=== PATIENT | male | born 1965 | race Caucasian/White ===

== ENCOUNTER 2016-12-10 03:50 | Emergency (ER) | payer MEDICARE, OTHER ==
[~2016-12-10] VITALS: Ht 193 cm; Wt 172.7 kg
[~2016-12-10 03:50] MED LIST: BACTRIM DS1 TAB PO; CARDIZEM CD240 MG PO; CIPROFLOXACN500 MG PO; DILAUDID 2MG2 MG/TAB PO; DOCUSATE CAL240 MG PO; ELIQUIS2.5 MG PO; GABAPENTIN300 MG PO; GILENYA0.5 MG PO; HORIZANT300 MG PO; HORIZANT600 MG PO; HYDROCODONE/ACE1 TAB PO; LISINOPRIL10 MG PO; LISINOPRIL20 MG PO; MEDDOSEPAK PO; MIRALAX3350 NF PO; NASACORT A55 MCG/ACT; PREDNISONE20 MG PO; PREVACID30 M3 PO; STERAPRED DS10 MG PO; ZITHROMAX250 MG PO
[2016-12-10 04:58] LABS: HEMATOCRIT 50.1 % (39.0-50.0); HEMOGLOBIN 16.5 g/dl (14.0-18.0); MEAN CELL VOLUME 92.6 fL CALC (80.0-100.0); MEAN CORPUSCULAR HGB 30.5 pG CALC (26.0-32.0); MEAN CORPUSCULAR HGB CONC 32.9 g/L CALC (32.0-36.0); NEUT# 7.76 thou/uL (1.82-7.42); RED BLOOD COUNT 5.41 mill/uL (4.70-6.10); RED CELL DISTRI WIDTH 13.5 % (11.5-15.5)
[2016-12-10 05:06] LABS: ALKALINE PHOSPHATASE 67 u/l (38-126); AMYLASE 44 u/l (30-110); ANION GAP 15 (6-22 (CALC)); BILIRUBIN, TOTAL 0.3 mg/dL (0.0-1.4); BUN 11 mg/dL (9-20); BUN/CREATININE RATIO 15 (12-20 (CALC)); CALCIUM 9.5 mg/dL (8.4-10.2); CARBON DIOXIDE 32 mmol/l (22-30); CHLORIDE 99 mmol/l (95-108); CREATININE 0.7 mg/dL (0.7-1.3); GFR > 60 ML/MIN (>=60 (CALC)); GFR FOR AFR.AMER. > 60 ML/MIN (>=60 (CALC)); GLUCOSE 202 mg/dL (75-110); LIPASE 35 u/l (23-300); POTASSIUM 3.7 mmol/l (3.5-5.1); SGOT/AST 19 u/l (17-59); SGPT/ALT 41 u/l (21-72); SODIUM 142 mmol/l (137-146); TOTAL PROTEIN 6.9 g/dL (6.3-8.2)
[2016-12-10 05:18] LABS: MYOGLOBIN 21 ng/mL (0 - 121)
[2016-12-10] MEDS ORDERED: MAG CITRATE PO (06:37)
[2016-12-10 07:05] VITALS: BP 144/81
== END 2016-12-10 08:54 | disposition home or self-care (01) ==
LOC: ED 03:50
PROVIDERS: Emergency Medicine
DX: K59.00 Constipation, unspecified (principal); I10 Essential (primary) hypertension; I48.91 Unspecified atrial fibrillation; F17.220 Nicotine dependence, chewing tobacco, uncomplicated; R10.84 Generalized abdominal pain; M54.9 Dorsalgia, unspecified

== ENCOUNTER 2016-12-21 22:01 | Emergency (ER) | payer MEDICARE, OTHER ==
[~2016-12-21] VITALS: Ht 193 cm; Wt 181.8 kg
[~2016-12-21 22:01] MED LIST changes: +MAG CITRATE PO
[2016-12-22] VITALS: BP 138/66
== END 2016-12-22 00:18 ==
LOC: ED 22:01
DX: M54.5 Low back pain (principal); I10 Essential (primary) hypertension; G35 Multiple sclerosis; E11.9 Type 2 diabetes mellitus without complications; I48.91 Unspecified atrial fibrillation; F17.210 Nicotine dependence, cigarettes, uncomplicated; E66.01 Morbid (severe) obesity due to excess calories; Z68.42 Body mass index [BMI] 45.0-49.9, adult

== ENCOUNTER 2017-04-29 22:28 | Emergency (ER) | payer MEDICARE, OTHER ==
[~2017-04-29] VITALS: Ht 193 cm; Wt 181.8 kg
[2017-04-29 23:59] LABS: HEMATOCRIT 46.8 % (39.0-50.0); HEMOGLOBIN 15.8 g/dl (14.0-18.0); IMMATURE GRANULOCYTES 0.9 % (0.0-1.0); MEAN CELL VOLUME 91.1 fL CALC (80.0-100.0); MEAN CORPUSCULAR HGB 30.7 pG CALC (26.0-32.0); MEAN CORPUSCULAR HGB CONC 33.8 g/L CALC (32.0-36.0); NEUT# 8.57 thou/uL (1.82-7.42); RED BLOOD COUNT 5.14 mill/uL (4.70-6.10); RED CELL DISTRI WIDTH 13.1 % (11.5-15.5)
[2017-04-30 00:05] LABS: ALBUMIN 3.9 g/dL (3.2-5.0); ALKALINE PHOSPHATASE 65 u/l (38-126); ANION GAP 14 (6-22 (CALC)); BILIRUBIN, TOTAL 0.5 mg/dL (0.0-1.4); BUN 10 mg/dL (9-20); BUN/CREATININE RATIO 15 (12-20 (CALC)); CALCIUM 8.9 mg/dL (8.4-10.2); CARBON DIOXIDE 28 mmol/l (22-30); CHLORIDE 99 mmol/l (95-108); CREATININE 0.7 mg/dL (0.7-1.3); GFR > 60 ML/MIN (>=60 (CALC)); GFR FOR AFR.AMER. > 60 ML/MIN (>=60 (CALC)); GLUCOSE 244 mg/dL (75-110); POTASSIUM 3.8 mmol/l (3.5-5.1); SGOT/AST 33 u/l (17-59); SGPT/ALT 49 u/l (21-72); SODIUM 137 mmol/l (137-146); TOTAL PROTEIN 6.6 g/dL (6.3-8.2)
[2017-04-30 01:40] VITALS: BP 127/74
== END 2017-04-30 01:50 ==
LOC: ED 22:28
PROVIDERS: Emergency Medicine
DX: M54.17 Radiculopathy, lumbosacral region (principal); G89.29 Other chronic pain; M54.5 Low back pain

== ENCOUNTER 2017-12-22 14:43 | Observation (INO) | payer MEDICARE, OTHER ==
[~2017-12-22] VITALS: Ht 193 cm; Wt 158.0 kg
[~2017-12-22 14:43] MED LIST changes: +DILTIAZEM120 M2 PO; +SOMA350 MG PO; +TIZANIDINE HCL4 M1 PO; +XANAX XR2 MG PO; +ZESTRIL10 M1 PO
[2017-12-22 16:02] LABS: HEMATOCRIT 48.6 % (39.0-50.0); IMMATURE GRANULOCYTES 0.3 % (0.0-1.0); MEAN CELL VOLUME 90.8 fL CALC (80.0-100.0); MEAN CORPUSCULAR HGB 29.9 pG CALC (26.0-32.0); MEAN CORPUSCULAR HGB CONC 32.9 g/L CALC (32.0-36.0); NEUT# 6.66 thou/uL (1.82-7.42); RED BLOOD COUNT 5.35 mill/uL (4.70-6.10); RED CELL DISTRI WIDTH 13.7 % (11.5-15.5)
[2017-12-22 16:18] LABS: ALBUMIN 3.5 g/dL (3.2-5.0); ALKALINE PHOSPHATASE 71 u/l (38-126); ANION GAP 19 (6-22 (CALC)); BILIRUBIN, TOTAL 0.4 mg/dL (0.0-1.4); BUN 8 mg/dL (9-20); BUN/CREATININE RATIO 13 (12-20 (CALC)); CARBON DIOXIDE 27 mmol/l (22-30); CHLORIDE 93 mmol/l (95-108); CREATININE 0.7 mg/dL (0.7-1.3); GFR > 60 ML/MIN (>=60 (CALC)); GFR FOR AFR.AMER. > 60 ML/MIN (>=60 (CALC)); LIPASE 39 u/l (23-300); POTASSIUM 4.8 mmol/l (3.5-5.1); SGOT/AST 19 u/l (17-59); SGPT/ALT 39 u/l (21-72); SODIUM 134 mmol/l (137-146); TOTAL PROTEIN 6.6 g/dL (6.3-8.2)
[2017-12-22 18:50] LABS: URINE BILIRUBIN - DIPSTICK NEGATIVE (NEGATIVE); URINE BLOOD DIPSTICK SMALL (NEGATIVE); URINE COLOR YELLOW; URINE GLUCOSE - DIPSTICK NEGATIVE (NEGATIVE); URINE KETONE NEGATIVE (NEGATIVE); URINE LEUK ESTERASE NEGATIVE (NEGATIVE); URINE NITRITE - DIPSTICK NEGATIVE (Negative); URINE PH 5.5 (4.5-8.0); URINE PROTEIN - DIPSTICK NEGATIVE (NEG-TRACE); URINE UROBILINOGEN - DIPSTICK 0.2 E.U./dL (0.2)
[2017-12-22 18:52] LABS: URINE CLARITY CLEAR
[2017-12-22 18:53] VITALS: BP 102/65
[2017-12-22 18:58] LABS: URINE WBC 0-2 WBC/hpf (0-5)
[2017-12-23 04:10] VITALS: BP 113/73
[2017-12-23 08:00] VITALS: BP 146/77
[2017-12-23 15:24] VITALS: BP 113/71
[2017-12-23 17:39] LABS: CHOLESTEROL HDL RATIO 6.2 (<4.4 (CALC))
[2017-12-23 18:40] VITALS: BP 117/73
[2017-12-24 04:00] VITALS: BP 118/78
[2017-12-24 05:48] LABS: HEMATOCRIT 46.4 % (39.0-50.0); HEMOGLOBIN 15.2 g/dl (14.0-18.0); MEAN CELL VOLUME 91.2 fL CALC (80.0-100.0); MEAN CORPUSCULAR HGB 29.9 pG CALC (26.0-32.0); MEAN CORPUSCULAR HGB CONC 32.8 g/L CALC (32.0-36.0); RED BLOOD COUNT 5.09 mill/uL (4.70-6.10); RED CELL DISTRI WIDTH 13.7 % (11.5-15.5)
[2017-12-24 05:57] LABS: ANION GAP 18 (6-22 (CALC)); BUN 9 mg/dL (9-20); BUN/CREATININE RATIO 13 (12-20 (CALC)); CARBON DIOXIDE 29 mmol/l (22-30); CHLORIDE 94 mmol/l (95-108); CREATININE 0.7 mg/dL (0.7-1.3); GFR > 60 ML/MIN (>=60 (CALC)); GFR FOR AFR.AMER. > 60 ML/MIN (>=60 (CALC)); MAGNESIUM 2.1 mg/dL (1.6-2.3); POTASSIUM 4.9 mmol/l (3.5-5.1); SODIUM 135 mmol/l (137-146)
[2017-12-24 08:20] VITALS: BP 130/75
[2017-12-24 14:48] VITALS: BP 129/68
[2017-12-25 00:45] VITALS: BP 122/70
[2017-12-25 07:40] VITALS: BP 116/76
[2017-12-25 08:49] VITALS: BP 116/76
== END 2017-12-25 14:30 | disposition home health service (06) ==
LOC: ED 14:43 → ED-I 15:29 → ED 15:29 → ED-I 17:39 → ED 17:59 → MS2 18:00
PROVIDERS: Family Medicine; Nurse Practitioner Family; ADMIT Internal Medicine; ATTEND Internal Medicine
DX: K59.09 Other constipation (principal); I10 Essential (primary) hypertension; E11.9 Type 2 diabetes mellitus without complications; Z68.41 Body mass index [BMI] 40.0-44.9, adult; E66.01 Morbid (severe) obesity due to excess calories; G35 Multiple sclerosis; M48.00 Spinal stenosis, site unspecified; I48.0 Paroxysmal atrial fibrillation; L89.153 Pressure ulcer of sacral region, stage 3; R10.32 Left lower quadrant pain; F17.220 Nicotine dependence, chewing tobacco, uncomplicated; G82.50 Quadriplegia, unspecified; G47.33 Obstructive sleep apnea (adult) (pediatric); Z79.01 Long term (current) use of anticoagulants; Z79.84 Long term (current) use of oral hypoglycemic drugs
CPT/HCPCS: J1335; Q9967

== ENCOUNTER 2018-01-16 08:44 | Inpatient (IN) | payer MEDICARE, OTHER ==
[~2018-01-16] VITALS: Ht 193 cm; Wt 175.4 kg
[2018-01-16] VITALS (36 sets, daily range): BP systolic 62–148; BP diastolic 33–82
--- NOTE | 2018-01-16 09:07 | NUR ---
PATIENT TO ROOM VIA EMS AND PHYSICIAN AT BEDSIDE FOR EVAL
[2018-01-16 09:21] LABS: HEMATOCRIT 47.9 % (39.0-50.0); HEMOGLOBIN 15.9 g/dl (14.0-18.0); MEAN CELL VOLUME 90.9 fL CALC (80.0-100.0); MEAN CORPUSCULAR HGB 30.2 pG CALC (26.0-32.0); MEAN CORPUSCULAR HGB CONC 33.2 g/L CALC (32.0-36.0); NEUT# 17.86 thou/uL (1.82-7.42); RED BLOOD COUNT 5.27 mill/uL (4.70-6.10); RED CELL DISTRI WIDTH 14.1 % (11.5-15.5)
--- NOTE | 2018-01-16 09:21 | NUR ---
Vancomycin consult Age: 52 years Weight: 181 kg Height: 193 cm Gender: Male SCR: 1 mg/dl Dosing weight: 124.48 kg IBW: 86.80 kg CRCL (ml/min): 108.5 Kev (hr-1): 0.094 Half-life (hrs): 7.37 Vd (liters): 126.70 (factor: 0.7 L/kg) Vancomycin 1500 mg q8 hrs to produce a predicted peak of 20 mcg/ml and a predicted trough of 12 mcg/ml based on (Population-based pharmacokinetic analysis).
[2018-01-16 09:22] LABS: URINE BLOOD DIPSTICK LARGE (NEGATIVE); URINE COLOR RED; URINE GLUCOSE - DIPSTICK 100 mg/dL (NEGATIVE); URINE KETONE TRACE mg/dL (NEGATIVE); URINE PROTEIN - DIPSTICK >=300 mg/dL (NEG-TRACE); URINE SPECIFIC GRAVITY 1.015
[2018-01-16 09:37] LABS: ALBUMIN 3.6 g/dL (3.2-5.0); ALKALINE PHOSPHATASE 81 u/l (38-126); ANION GAP 17 (6-22 (CALC)); BILIRUBIN, TOTAL 0.9 mg/dL (0.0-1.4); BUN 9 mg/dL (9-20); BUN/CREATININE RATIO 13 (12-20 (CALC)); CARBON DIOXIDE 24 mmol/l (22-30); CHLORIDE 95 mmol/l (95-108); CREATININE 0.7 mg/dL (0.7-1.3); GFR > 60 ML/MIN (>=60 (CALC)); GFR FOR AFR.AMER. > 60 ML/MIN (>=60 (CALC)); POTASSIUM 4.2 mmol/l (3.5-5.1); SGPT/ALT 46 u/l (21-72); SODIUM 133 mmol/l (137-146)
[2018-01-16 09:38] LABS: URINE BILIRUBIN - DIPSTICK NEGATIVE (NEGATIVE); URINE CLARITY CLOUDY; URINE LEUK ESTERASE MODERATE (NEGATIVE); URINE NITRITE - DIPSTICK POSITIVE (Negative)
[2018-01-16 09:39] LABS: URINE RBC >100 RBC/hpf (0-5)
[2018-01-16 09:40] LABS: SGOT/AST 42 u/l (17-59)
--- NOTE | 2018-01-16 09:47 | NUR ---
RECVD REPORT FROM MIRTHA LYONS. INTRODUCED SELF TO PT. PT RESTING IN BED.
--- NOTE | 2018-01-16 10:43 | NUR ---
PT SLEEPING, BUT EASILY AROUSED. PT UNSURE OF HOME MEDS. CONSULT PLACED WITH PHARMACY.
--- NOTE | 2018-01-16 11:10 | NUR ---
CALLED INTO ROOM, PT REQUEST I MOVE HIS ARMS ONTO PILLOW. PT READJUSTED.
--- NOTE | 2018-01-16 11:44 | NUR ---
RECVING MIRTHA THOMPSON.
--- NOTE | 2018-01-16 12:02 | NUR ---
PT GIVEN A CUP OF WATER.
--- NOTE | 2018-01-16 12:11 | NUR ---
sbar printed to floor
--- NOTE | 2018-01-16 12:18 | NUR ---
WAITING ON ORDERS/ROOM ASSINGMENT FOR ICU. PT AWAKE. ANSWERING HIS QUESTIONS. SEPSIS SHEET COMPLETED. EKG COMPLETED.
--- NOTE | 2018-01-16 12:31 | NUR ---
Admission Note Report Given to: PEDRO HORTON Transported by: Wheelchair X Stretcher Transported with: X Nurse Transporter X Patent IV O2 X Credit Card Control Clerk
--- NOTE | 2018-01-16 12:35 | NUR ---
PT TRANSFERED TO ICU 5 IN STABLE CONDITION ON TELE BY [place]. RN @ BEDSIDE.
--- NOTE | 2018-01-16 12:50 | NUR ---
PT ARRIVED TO THE UNIT VIA STRETCHER FROM ER, PT WAS A MAX ASSIST SLIDE TO ICU BED 5, PT A & O X3, PERRL, MONITORING EQUIPMENT AND CALL CORTEZ SYSTEM EXPLAINED TO PT PRIOR TO APPLYING EQUIPMENT, HR 104, RESP. 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
[2018-01-16] MEDS ORDERED: DILTIAZEM HCL240 M2 PO (12:59)
[2018-01-16] MEDS ORDERED: ELIQUIS5 MG PO (12:59)
[2018-01-16] MEDS ORDERED: NEURONTIN300 MG PO (12:59)
[2018-01-16] MEDS ORDERED: HYDROCO/APAP1 TA9 PO (13:00)
[2018-01-16] MEDS ORDERED: ZESTRIL10 M1 PO (13:00)
[2018-01-16] MEDS ORDERED: METFORMIN500 MG PO (13:01)
[2018-01-16] MEDS ORDERED: TIZANIDINE HCL4 MG PO (13:01)
--- NOTE | 2018-01-16 13:01 | NUR ---
FOUND MEDICATION BOTTLES IN BAG ON COUNTER. UNSURE IF MED LIST IS COMPLETE OR WHEN PT LAST TOOK MEDS.
--- NOTE | 2018-01-16 13:20 | NUR ---
PT HAS MULTIPLE DEMANDS, INTERRUPTING NURSING CARE
--- NOTE | 2018-01-16 13:31 | NUR ---
GAYLE Bernal updated per this creative services writer on pt condition; informed manual bp 72/50, st 100s, temp 101.3, 4th L bolus currently infusing; orders to be placed
--- NOTE | 2018-01-16 13:40 | NUR ---
CALL PLACED TO DR LOWERY, GAVE PT UPDATE, PLAN OF CARE DISCUSSED, NO NEW ORDERS GIVEN AT THIS TIME
--- NOTE | 2018-01-16 14:05 | NUR ---
PT EDUCATED THAT HOME MEDICATIONS CAN NOT BE KEPT AT BEDSIDE, PT NOT HAPPY THAT MEDICATION HAS TO BE SENT HOME OR TO PHARMACY, PT STATED, "I CAN'T EVEN GET OUT OF THE BED TO GET MY MEDICATION SO HOW AM I GOING TO TAKE MY OWN MEDICATION"
--- NOTE | 2018-01-16 15:15 | NUR ---
PT CALLING OUT FOR NURSE TO CHANGE THE TV, PT STATES, "I CAN'T MOVE MY ARMS", WHEN GIVING HIM THE CALL LIGHT BACK PT REACHED OUT AND GRABBED IT
--- NOTE | 2018-01-16 16:45 | NUR ---
PT RESTING WITH EYES CLOSED, AROUSES EASILY TO VERBAL STIMULI, REMINDED TO CALL FOR ASSISTANCE, CALL CORTEZ WITHIN REACH
--- NOTE | 2018-01-16 17:35 | NUR ---
FAN PROVIDED FOR PT COMFORT, PT MAKES MANY DEMANDS VERY DIFFICULT TO PLEASE, PT ASSISTED WITH REPOSITIONING,REMINDED TO CALL FOR ASSISTANCE, CALL CORTEZ WITHIN REACH
--- NOTE | 2018-01-16 18:07 | NUR ---
SETUP ASSISTANCE PROVIDED WITH PM MEAL, PT ENCOURAGED TO TRY AND FEED SELF, PT ASSURED ASSISTANCE WOULD BE PROVIDED WITH FEEDING IF HE WAS UNABLE TO FEED SELF, CONTROL SO PT COULD REACH IT MORE EASILY, PT REMINDED TO CALL FOR ASSISTANCE, CALL CORTEZ WITHIN REACH
--- NOTE | 2018-01-16 19:10 | NUR ---
awake. no acute distress. o2 cont per nc. desk monitor shows sinus tach. #20 lt hand saline lock. #18 rac ns infusing @ 100cchr, levo infusing @ 5mcg/min. drinking lg amt h20. esposito cath in place draining bloody urine. urometer applied. pt is very obese. requires much encouragement to assist with care. incont small amt green slimy watery stool. contact & fall precautions cont.
--- NOTE | 2018-01-16 20:20 | NUR ---
lab here. blood drawn.
--- NOTE | 2018-01-16 21:05 | NUR ---
lortab 3/325mg po per request for pain. pt admits pain level "more than 10". pt admits "i take my pain pills 5 times a day. i haven't had any in 24 hrs". pt does not appear in that much pain.
--- NOTE | 2018-01-16 21:50 | NUR ---
lab results rec'd. dr maher notified. orders rec'd.
--- NOTE | 2018-01-16 22:00 | NUR ---
instructed pt about order for ct. pt admitted "i have a show to watch." instructed pt he could watch tv later.
--- NOTE | 2018-01-16 22:05 | NUR ---
transferred onto stretcher x4 assists then to ct.
--- NOTE | 2018-01-16 22:30 | NUR ---
returned from ct.
[2018-01-17] VITALS (12 sets, daily range): BP systolic 100–139; BP diastolic 50–96
--- NOTE | 2018-01-17 00:01 | NUR ---
awake. no acute distress. 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 esposito draining small amt.
--- NOTE | 2018-01-17 01:00 | NUR ---
lortab 5/325mg given for c/o pain. rates pain level "10". pt does not appear in that much pain. temp 101.6. tylenol gr x given.
--- NOTE | 2018-01-17 02:00 | NUR ---
lab here. blood drawn.
[2018-01-17 02:07] LABS: HEMATOCRIT 42.1 % (39.0-50.0); HEMOGLOBIN 14.1 g/dl (14.0-18.0); IMMATURE GRANULOCYTES 1.4 % (0.0-1.0); MEAN CELL VOLUME 90.5 fL CALC (80.0-100.0); MEAN CORPUSCULAR HGB 30.3 pG CALC (26.0-32.0); MEAN CORPUSCULAR HGB CONC 33.5 g/L CALC (32.0-36.0); RED BLOOD COUNT 4.65 mill/uL (4.70-6.10); RED CELL DISTRI WIDTH 14.5 % (11.5-15.5)
[2018-01-17 02:36] LABS: ANION GAP 16 (6-22 (CALC)); BUN 13 mg/dL (9-20); BUN/CREATININE RATIO 12 (12-20 (CALC)); CARBON DIOXIDE 18 mmol/l (22-30); CHLORIDE 104 mmol/l (95-108); CREATININE 1.1 mg/dL (0.7-1.3); GFR > 60 ML/MIN (>=60 (CALC)); GFR FOR AFR.AMER. > 60 ML/MIN (>=60 (CALC)); POTASSIUM 4.3 mmol/l (3.5-5.1); SODIUM 133 mmol/l (137-146)
[2018-01-17 03:13] LABS: BAND 5 % (0-8); MANUAL DIFFERENTIAL YES; PLATELET COUNT 169 thou/uL (130-400)
--- NOTE | 2018-01-17 04:00 | NUR ---
eyes closed. no distress. desk monitor shows sinus rhythm.
--- NOTE | 2018-01-17 06:15 | NUR ---
awake. c/o back pain he rates as "10." pt does not appear to have pain level of 10. lortab 5/325mg po given.
--- NOTE | 2018-01-17 07:15 | NUR ---
PT LAYING IN BED RESTING WITH EYES CLOSED, AROUSES EASILY TO VERBAL STIMULI, PT A & O X3, REMAINS VERY DEMANDING, PERRL, HR 94, RESP. 18, BP 100/64, O2 96% ON RA, LUNG SOUNDS CLEAR, DIMINISHED IN THE BASES, STRONG RADIAL PULSES, WEAK PEDAL PULSES, ACTIVE BOWEL SOUNDS, LOYOLA CATH REMAINS IN PLACE WITH TEA COLORED URINE DRAINING WITH A SMALL CLOTS, AM ASSESSMENT COMPLETE, SEE INTERVENTIONS, SAFETY MEASURES REINFORCED, CALL CORTEZ WITHIN REACH
--- NOTE | 2018-01-17 07:35 | NUR ---
SETUP ASSISTANCE PROVIDED WITH JAMEY MOCTEZUMA
--- NOTE | 2018-01-17 07:50 | NUR ---
PT CLEANED UP WITH 5 PERSON ASSISTANCE
--- NOTE | 2018-01-17 08:12 | NUR ---
DIETARY AT BEDSIDE DISCUSSING MEAL CHOICES
--- NOTE | 2018-01-17 09:15 | NUR ---
DR OLSEN AT BEDSIDE DISCUSSING PLAN OF CARE
[2018-01-17 09:36] LABS: C. DIFFICILE TOXIN A&B NEGATIVE (NEGATIVE)
--- NOTE | 2018-01-17 09:43 | NUR ---
VANE FROM CASE MANAGEMENT AT BEDSIDE
--- NOTE | 2018-01-17 10:00 | NUR ---
PT CALLING OUT REQUESTING TO BED BOOSTED IN BED, PT AWARE EXTRA ASSISTANCE WOULD BE NEEDED, CALL CORTEZ WITHIN REACH
--- NOTE | 2018-01-17 10:15 | NUR ---
DAUGHTERS AT BEDSIDE
--- NOTE | 2018-01-17 11:10 | NUR ---
PT CALLING OUT WITH MULTIPLE REQUEST, UNABLE TO COMPLETE ONE REQUEST BEFORE PT MAKING MORE REQUEST
--- NOTE | 2018-01-17 12:29 | NUR ---
REPORT RECEIVED FROM MARYSOL, PT ARRIVED ON UNIT IN BED @ 1153, SETTLED IN ROOM, MEAL SERVED AND HE ATE THEN FELL ASLEEP. SLEEPING AT THIS TIME, WILL CONTINUE TO MONITOR, CALL CORTEZ IN REACH.
--- NOTE | 2018-01-17 14:00 | NUR ---
BARIATRIC BED DELIVERED TO ROOM, IT TOOK AT LEAST 6 LARGE MEN TO TRANSFER PT FROM REGULAR BED TO BARIATRIC BED. SETTLED IN BED, STAFF ADDRESSED ALL NEEDS/WANTS, CALL CORTEZ IN REACH.
--- NOTE | 2018-01-17 14:00 | NUR ---
PT IS VERY NEEDY AND CANNOT BE SATISFIED BY STAFF, ALL NEEDS ANTICIPATED BY STAFF AND STAFF GIVES HIM OPPORTUNITY TO HAVE ALL HIS "WANTS" ADDRESSED BUT THEY ARE USUALLY ENDLESS AND STAFF HAS TO LEAVE ROOM ABRUPTLY CALL CORTZE IN REACH, WILL CONTINUE TO MONITOR.
--- NOTE | 2018-01-17 16:00 | NUR ---
NO DRAINAGE IN LOYOLA BAG, CATHETER IRRIGATED, THICK BLOODY URINE ASPIRATED. DR FUCHS HERE @ 1700 ROUNDING, GAVE ORDERS TO IRRIGATE TWICE PER SHIFT AND THAT HE WILL TAKE PT TO OR IN 2-3 DAYS FOR FURTHER EVALUATION.
--- NOTE | 2018-01-17 20:18 | NUR ---
PATIENT RESTING IN BED WATCHING TV. HAS C/O OF PAIN AND NEEDING TO BE REPOSITIONED IN BED. RESP EVEN AND UNLABORED. NO S/S OF DISTRESS NOTED. PLAN OF CARE DISCUSSED AND FALL PRECAUTIONS IN PLACE. INFORMED PATIENT TO USE CALL LIGHT FOR ANY QUESTIONS OR CONCERNS. WILL CONTIUNE TO MICHAEL.
[2018-01-18] VITALS (9 sets, daily range): BP systolic 99–163; BP diastolic 44–89
--- NOTE | 2018-01-18 00:34 | NUR ---
PATIENT RESTING WITH EYES CLOSED. RESP EVEN AND UNLABORED. NO S/S OF DISTRESS NOTED.
--- NOTE | 2018-01-18 04:00 | NUR ---
FLOEY DRAINING BLOODY URINE ALL NIGHT. IRRIGATIED LOYOLA WITH 100ML, WHEN ASPIRIATED ROVED SEVERAL SMALL CLOTTS. NO DRAINING CLEAR RED URINE. PATIENT TOLERATED WELL.
--- NOTE | 2018-01-18 04:27 | NUR ---
PATIENT RESTING WITH EYES CLOSED. RESP EVEN AND UNLABORED. NO S/S OF DISTRESS NOTED.
[2018-01-18 07:01] LABS: HEMATOCRIT 36.8 % (39.0-50.0); IMMATURE GRANULOCYTES 1.2 % (0.0-1.0); MEAN CELL VOLUME 91.5 fL CALC (80.0-100.0); MEAN CORPUSCULAR HGB 30.1 pG CALC (26.0-32.0); MEAN CORPUSCULAR HGB CONC 32.9 g/L CALC (32.0-36.0); NEUT# 18.44 thou/uL (1.82-7.42); RED BLOOD COUNT 4.02 mill/uL (4.70-6.10); RED CELL DISTRI WIDTH 14.5 % (11.5-15.5)
[2018-01-18 07:02] LABS: HEMOGLOBIN 12.1 g/dl (14.0-18.0)
--- NOTE | 2018-01-18 07:05 | NUR ---
REPORT RECEIVED FROM SOLIS FLORES RN;INTRODUCED SELF TO PT AND POC DISCUSSED;5 PERSON LIFT ASSIST,PT RE-POSITIONED TO LEFT SIDE LAYING POSITION;ENCOURAGED PT TO CALL FOR ASSISTANCE IF NEEDED;FALL PRECAUTIONS IN PLACE WITH CALL LIGHT IN REACH;WILL CONTINUE TO MONITOR
[2018-01-18 07:15] LABS: BILIRUBIN, TOTAL 0.3 mg/dL (0.0-1.4); CREATININE 1.9 mg/dL (0.7-1.3); POTASSIUM 3.9 mmol/l (3.5-5.1)
[2018-01-18 07:19] LABS: TOTAL PROTEIN 4.4 g/dL (6.3-8.2)
--- NOTE | 2018-01-18 08:05 | NUR ---
PT APPEARS TO BE SLEEPING IN SEMI FOWLERS POSITION,WAKES EASILY TO VERBAL STIMULI;VS OBTAINED AND ASSESSMENT COMPLETED;RESPIRATIONS EVEN AND UNLABORED,SHALLOW ON RA;ABDOMEN DISTENDED/SOFT ON PALPATION,HYPOACTIVE IN ALL 4 QUADRANTS;WEAK PEDAL PULSES NOTED WITH +2 PITTING EDEMA NOTED,LEGS ELEVATED ON PILLOW;TELE MONITOR IN PLACE;#18G TO RAC FLUSHED AND PATENT,NEW TEGADERM APPLIED;EMS #20G TO LEFT HAND INFUSING NS @ 100ML/HR WELL,SITE APPEARS HEALTHY;PT RE-EDUCATED ON NPO DIET STATUS AND PT VERBALIZES UNDERSTANDING;LOYOLA CATHETER PATENT,DRAINING BLOODY/SEDIMENT URINE;LOYOLA IRRIGATED AT THIS TIME PER ORDER AND FLUSHED WITH EASE,NO CLOTS NOTED;ALLERGY BAND APPLIED;PT CURRENT TEMP 98.9;PT DENIES ANY CURRENT PAIN OR NEEDS;ENCOURAGED TO CALL FOR ASSISTANCE IF NEEDED;CALL LIGHT IN REACH;WILL CONTINUE TO MONITOR
--- NOTE | 2018-01-18 09:30 | NUR ---
TOTAL BED BATH GIVEN WITH EMMA/LOYOLA CATHETER CARE;WOUND TO BUTTOCK CLEANED AND WET TO DRY DRESSING APPLIED PER ORDER,PT TOLERATED WELL;RE-POSITIONED IN BED;PT DENIES ANY CURRENT NEEDS;FALL PRECAUTIONS IN PLACE WITH CALL LIGHT IN REACH;WILL CONTINUE TO MONITOR
--- NOTE | 2018-01-18 11:40 | NUR ---
PT RESTING IN SEMI FOWLERS POSITION;IV SITE PATENT INFUSING NS @ 125ML/HR,SITE APPEARS HEALTHY;TELE MONITOR IN PLACE;PT DENIES ANY CURRENT NEEDS;RESPIRATIONS EVEN AND UNLABORED ON RA;LOYOLA CATHETER PATENT DRAINING BLOODY URINE;PT RE-EDUCATED ON NPO DIET STATUS;FALL PRECAUTIONS IN PLACE;CALL LIGHT IN REACH;WILL CONTINUE TO MONITOR
--- NOTE | 2018-01-18 12:40 | NUR ---
PT COMPLAINS OF BACK AND HEAD PAIN RATING 10/10 ON THE PAIN SCALE;PT EDUCATED ON NPO DIET STATUS AND A LOWER BP;PAIN MEDICATION HELD AT THIS AND PT VERBALIZES UNDERSTANDING;WILL CONTINUE TO MONITOR
--- NOTE | 2018-01-18 13:09 | NUR ---
PT TRANSFERRED AT THIS TIME TO OR VIA HOSPITAL BED IN STABLE CONDITION
--- NOTE | 2018-01-18 16:00 | NUR ---
PT CURRENTLY DOWN IN OR;FAMILY IN ROOM 274 AWAITING ARRIVAL OF PATIENT;DAUGHTER ASKED TO PLEASE BRING IN ALL OF PATIENTS HOME MEDICATIONS PER ADELAIDE RODRIGUEZ AND VERBALIZES UNDERSTANDING
--- NOTE | 2018-01-18 16:50 | NUR ---
PT ARRIVED TO FLOOR VIA HOSPITAL BED;CBI RUNNING BAG #2 WITH EASE DRAINING CLEAR URINE,PT TOLERATING WELL;SCD'S IN PLACE;IV SITE PATENT RUNNING NS @ 125ML/HR,SITE REMAINS HEALTHY;PO FLUIDS PROVIDED;PT EDUCATED ON HOLDING PAIN MEDICATION UNTIL BP RISES;VS OBTAINED;ENCOURAGED PT TO CALL FOR ASSISTANCE IF NEEDED;FALL PRECAUTIONS IN PLACE;CALL LIGHT IN REACH;WILL CONTINUE TO MONITOR
--- NOTE | 2018-01-18 18:00 | NUR ---
EMS #18G TO RAC REMOVED DUE TO INFILTRATION WITH CATHETER INTACT
--- NOTE | 2018-01-18 19:00 | NUR ---
RECEIVED CHANGE OF SHIFT REPORT FROM JOLLY WALLIS. PT ALERT AND ORIENTED AND LYING IN BED. REPORTS UNRELEIVED LOWER BACK PAIN. WILL MANAGED. CBI IN PLACE AND DRAINING WITHOUT DIFFICULTY. WILL CONTINUE TO MONITOR.
--- NOTE | 2018-01-18 19:22 | NUR ---
MEDICATED WITH LORTAB 5/325 X I TAB. FOR PAIN LEVEL OF 10 ON 0-10 PAIN SCALE. WILL REEVALUATE.
[2018-01-19] VITALS (7 sets, daily range): BP systolic 91–151; BP diastolic 52–89
--- NOTE | 2018-01-19 | NUR ---
PT RESTING QUIETLY AT THIS TIME. EYES CLOSED AND APPEARS TO BE ASLEEP. RESP EVEN AND NON-LABORED. CBI DRAINING WITHOUT DIFFICULTY.
--- NOTE | 2018-01-19 04:00 | NUR ---
PT ASLEEP WITH RESP EVEN AND NON LABORED. NO APPARENT ACUTE CHANGES NOTED IN PT'S CONDITION.
[2018-01-19 05:03] LABS: HEMATOCRIT 37.9 % (39.0-50.0); HEMOGLOBIN 12.2 g/dl (14.0-18.0); MEAN CELL VOLUME 92.4 fL CALC (80.0-100.0); MEAN CORPUSCULAR HGB 29.8 pG CALC (26.0-32.0); MEAN CORPUSCULAR HGB CONC 32.2 g/L CALC (32.0-36.0); NEUT# 12.96 thou/uL (1.82-7.42); RED BLOOD COUNT 4.1 mill/uL (4.70-6.10); RED CELL DISTRI WIDTH 14.7 % (11.5-15.5)
[2018-01-19 05:18] LABS: ANION GAP 14 (6-22 (CALC)); BUN 19 mg/dL (9-20); BUN/CREATININE RATIO 16 (12-20 (CALC)); CARBON DIOXIDE 20 mmol/l (22-30); CHLORIDE 108 mmol/l (95-108); CREATININE 1.2 mg/dL (0.7-1.3); GFR > 60 ML/MIN (>=60 (CALC)); GFR FOR AFR.AMER. > 60 ML/MIN (>=60 (CALC)); POTASSIUM 3.8 mmol/l (3.5-5.1); SODIUM 138 mmol/l (137-146)
--- NOTE | 2018-01-19 06:53 | NUR ---
CBI CLAMPED PER PHYSICIAN'S ORDER.
--- NOTE | 2018-01-19 07:00 | NUR ---
REPORT RECEIVED FROM MIRTHA HERRERA;PT APPEARS TO BE RESTING IN SEMI FOWLERS POSITION,WAKES EASILY TO VERBAL STIMULI;INTRODUCED SELF TO PT AND POC DISCUSSED;CBI CLAMPED AT THIS TIME AND LOYOLA PATENT DRAINING CLEAR/YELLOW URINE;PT ENCOURAGED TO EXPRESS NEEDS AND CONCERNS;FALL PRECAUTIONS IN PLACE WITH BED IN THE LOWEST POSITION;CALL LIGHT IN REACH;WILL CONTINUE TO MONITOR
--- NOTE | 2018-01-19 07:45 | NUR ---
PT RESTING IN SEMI FOWLERS POSITION;VS OBTAINED AND ASSESSMENT COMPLETED;RESPIRATIONS EVEN AND UNLABORED ON RA,DIMINISHED LUNG SOUNDS NOTED;ABDOMEN SOFT ON PALPATION AND ACTIVE IN ALL 4 QUADRANTS;WEAK PEDAL PULSES;SCD'S IN PLACE;2+ PITTING EDEMA NOTED TO BLE;#18G TO RAC INFUSING NS @ 125ML/HR,SITE APPEARS HEALTHY;TELE MONITOR IN PLACE;PT DENIES ANY CURRENT PAIN OR NEEDS;REPOSITIONED IN BED WITH 4 PERSON ASSIST;ENCOURAGED PT TO CALL FOR ASSISTANCE IF NEEDED;FALL PRECAUTIONS AND CONTACT PRECAUTIONS IN PLACE;CALL LIGHT IN REACH;WILL CONTINUE TO MONITOR
--- NOTE | 2018-01-19 09:05 | NUR ---
CALL MADE TO REGARDING PT;ORDERS TO LEAVE CBI CLAMPED AT THIS TIME
--- NOTE | 2018-01-19 09:58 | NUR ---
PT MEDICATED WITH PRN LORTAB 10MG PO FOR LOWER BACK PAIN RATING 10/10 ON THE PAIN SCALE;WILL CONTINUE TO MONITOR
--- NOTE | 2018-01-19 11:49 | NUR ---
PT RESTING IN SEMI FOWLERS POSITION WITH FAMILY AT BEDSIDE;IV SITE PATENT;PT REPORTS PAIN LEVEL HAS DECREASED TO A 7/10 ON THE PAIN SCALE;LOYOLA CATHETER PATENT DRAINING CLEAR/YELLOW URINE;TELE MONITOR IN PLACE;PT DENIES ANY CURRENT NEEDS;ENCOURAGED TO CALL FOR ASSISTANCE IF NEEDED;CALL LIGHT IN REACH;WILL CONTINUE TO MONITOR
--- NOTE | 2018-01-19 15:30 | NUR ---
FULL BED BATH PROVIDED WITH EMMA AND LOYOLA CARE;WOUNDS TO BUTTOCK CLEANSED AND DRESSINGS APPLIED PER ADELAIDE PATE;TELE MONITOR IN PLACE;IV SITE PATENT WITH BLOOD DRIED TO TEGADERM DRESSING,NEW DRESSING APPLIED;LOYOLA CATHETER PATENT DRAINING RED.CLEAR URINE;URINE RED DUE TO RE-POSITIONING PATIENT;PT DENIES ANY OTHER CURRENT NEEDS;FALL PRECAUTIONS IN PLACE WITH CALL LIGHT IN REACH;WILL CONTINUE TO MONITOR
--- NOTE | 2018-01-19 16:08 | NUR ---
PT WAS BATHED, LINEN CHANGED. PT WAS ALSO SHAVED AND LOTIONED. PT TOLERATED WELL. CALL CORTEZ IN REACH. FRESH WATER PROVIDED WELL.
--- NOTE | 2018-01-19 16:30 | NUR ---
PT MEDICATED WITH PRN LORTAB 10MG PO FOR LOWER BACK PAIN RATING 10/10 ON THE PAIN SCALE;WILL CONTINUE TO MONITOR
--- NOTE | 2018-01-19 19:40 | NUR ---
PT.IS IN AIRBED BED IN HIGH FOWLERS POSITION WATCHING TV. DENIES ANY NEEDS AT THIS TIME. PT.HAS BEEN MEDICATED FOR PAIN ALREADY. BEDSIDE REPORT RECEIVED FORM [facility]. [address] CATHETER IS DRAINING DARK YELLOW URINE, SCD'S ARE OFF AT THIS TIME, IV FLUIDS ARE RUNNING ORDERED/SITE APPEARS HEALTHY. CALL LIGHT IS IN PT.HAND AND HE HAS BEEN ENCOURAGED TO CALL IF ANY NEEDS ARISE.
[2018-01-20] VITALS (7 sets, daily range): BP systolic 134–161; BP diastolic 57–82
--- NOTE | 2018-01-20 00:15 | NUR ---
IV FLUIDS ADMINISTERED ORDERED. PT.IS AWAKE AND WATCHING TV W/LIGHTS ON. DENIES ANY OTHER NEEDS AT THIS TIME. CALL AT SIDE.
--- NOTE | 2018-01-20 02:17 | NUR ---
PT.MEDICATED FOR PAIN REPORTED 06/15. PT.IS IN LOW FOWLERS IN BED W/LIGHTS ON WATCHING TV. HE REQUESTED TO BE TUCKED IN W/GREAT DETAIL, REFUSED ANY FURTHER POSITIONING. C/O PAIN IN STOMACH "FROM NOT HAVING BM." BM REPORTED LAST ON . PT.LEFT W/BED POSITIONED, LIGHTS AND TV OFF, CALL LIGHT ON BED
[2018-01-20 05:06] LABS: HEMATOCRIT 36.1 % (39.0-50.0); HEMOGLOBIN 11.8 g/dl (14.0-18.0); IMMATURE GRANULOCYTES 1.2 % (0.0-1.0); MEAN CELL VOLUME 91.4 fL CALC (80.0-100.0); MEAN CORPUSCULAR HGB 29.9 pG CALC (26.0-32.0); MEAN CORPUSCULAR HGB CONC 32.7 g/L CALC (32.0-36.0); NEUT# 5.04 thou/uL (1.82-7.42); RED BLOOD COUNT 3.95 mill/uL (4.70-6.10); RED CELL DISTRI WIDTH 14.5 % (11.5-15.5)
[2018-01-20 05:11] LABS: ANION GAP 14 (6-22 (CALC)); BUN 15 mg/dL (9-20); BUN/CREATININE RATIO 14 (12-20 (CALC)); CARBON DIOXIDE 23 mmol/l (22-30); CHLORIDE 109 mmol/l (95-108); CREATININE 1.1 mg/dL (0.7-1.3); GFR > 60 ML/MIN (>=60 (CALC)); GFR FOR AFR.AMER. > 60 ML/MIN (>=60 (CALC)); MAGNESIUM 1.7 mg/dL (1.6-2.3); POTASSIUM 3.8 mmol/l (3.5-5.1); SODIUM 143 mmol/l (137-146)
--- NOTE | 2018-01-20 05:23 | NUR ---
ED CALLED TO REPORT THAT PT.HAS BEEN HAVING PVC'S AND SHOWED TWO BIJEMINY'S ON CLINICAL LIAISON. PT.IS ASYMPTOMATIC AT THIS TIME. PHYSICIAN WILL BE MADE AWARE.
--- NOTE | 2018-01-20 07:00 | NUR ---
SHIFT CHANGE REPORT FROM STEPHANIE SOMMERS SLEEPING, BREATHING EVEN AND NON-LABORED, NO SIGN DISCOMFORT, LOYOLA CATHETER IN PLACE WITH YELLOW URINE, CALL CORTEZ IN REACH.
--- NOTE | 2018-01-20 09:25 | NUR ---
PHYSICAL THERAPISTS HERE AND WORKED WITH PT, WOUND DRESSING AND LINEN CHANGED, BED BATH GIVEN, ALL NEEDS ADDRESSED, CALL CORTEZ IN REACH.
--- NOTE | 2018-01-20 10:30 | NUR ---
BLOOD IN CATHETER DURING AND AFTER PERFORMING AM BED BATH, CLEARED UP AFTER MINUTES AND YELLOW URINE WITH SEDIMENTS PRESENT IN CATHETER.
--- NOTE | 2018-01-20 11:05 | NUR ---
Pt seen this am for ther ex/bed mobility. PROM/AAROM to RUE, PROM to LUE and BLEs. Pt rolled side to side with max assist of 3, he was able to assist with RUE and head turning, total assist to move up in bed. Pt left with nursing finishing am care.
--- NOTE | 2018-01-20 12:00 | NUR ---
PT HAS MANY COMPLAINS AND IS CONSTANTLY CALLING FOR ASSIST FOR ACTIVITIES HE IS ABLE TO PERFORM INDEPENDENTLY, STAFF ASSIST MUCH POSSIBLE WHERE NEEDS ARISE, WILL CONTNUE TO MONITOR.
--- NOTE | 2018-01-20 16:00 | NUR ---
C/O UNABLE TO CHANGE TV CHANNELS USING CONTROLS, REQUEST TO BE MOVED TO ANOTHER ROOM WHERE TV CONTROL FUNCTIONS PROPERLY, ADVISED STAFF WAS BUSY AT THAT TIME WITH PRIORITISING CARE AND WOULD ADDRESS SITUATION MARISSA. CYRIL CISNEROS DELIVERED HAND-HELD PT CONTROL FOR BED AFTER VANE (CM) CONTACTED COMPANY OR MISSING PART.
--- NOTE | 2018-01-20 19:36 | NUR ---
BEDSIDE REPORT RECEIVED FROM MIRTHA RODRIGUEZ. PT RESTING ON AIR MATTRESS TURNING FROM SIDE TO SIDE. C/O MILD LOWER BACK PAIN; STATES THAT LORTAB WAS EFFECTIVE. RESPIRATIONS EVEN AND UNLABORED ON ROOM AIR. LOYOLA CATHETER DRAINING CLEAR YELLOW URINE; LEG STRAP IN PLACE. PLAN OF CARE DISCUSSED. PT ENCOURAGED TO VERBALIZE CONCERNS. STATES UNDERSTANDING AND HAS QUESTIONS ABOUT HIS SCROTAL EDEMA. ALSO REQUESTS TO BE MOVED TO A DIFFERENT ROOM BECAUSE OF TV CONTROL ISSUES. SAFETY MEASURES IN PLACE. CALL LIGHT WITHIN REACH.
--- NOTE | 2018-01-20 23:54 | NUR ---
PT RESTING IN BED SEMI FOWLERS IN COMFORTABLE POSITION. LORTAB GIVEN AT HS PRIOR TO REPOSITIONING AND DRESSING CHANGE TO WOUND ON BUTTOCK; AQUACEL DRESSING APPLIED; PT TOLERATED WELL. IV FLUIDS INFUSING WITHOUT DIFFICULTY; IV SITE APPEARS HEALTHY. PT DID HAVE SMALL BOWEL MOVEMENT THIS EVENING. LOYOLA CATHETER DRAINING CLEAR YELLOW URINE IN ADEQUATE AMOUNTS; WITH A LOT OF MOVEMENT URINE TURNS PEACH IN TUBING AND THERE IS THIN BLOODY DRAINAGE IN SMALL AMOUNT FROM URINARY MEATUS. STOPS WHEN PT IS AT REST. PT'S REQUESTS ARE MET TO SATISFACTION AT THIS TIME. SAFETY MEASURES IN PLACE. CALL LIGHT WITHIN REACH.
[2018-01-21 04:24] VITALS: BP 159/84
--- NOTE | 2018-01-21 04:26 | NUR ---
PT ASLEEP AT THIS TIME WITH NO SIGNS OF DISTRESS NOTED. PT ASSISTED WITH REPOSITIONING AND LORTAB GIVEN PER REQUEST. RESPIRATIONS EVEN AND UNLABORED ON ROOM AIR. SAFETY MEASURES IN PLACE. CALL LIGHT WITHIN REACH.
[2018-01-21 05:04] LABS: HEMATOCRIT 36.2 % (39.0-50.0); HEMOGLOBIN 11.8 g/dl (14.0-18.0); MEAN CORPUSCULAR HGB 29.4 pG CALC (26.0-32.0); MEAN CORPUSCULAR HGB CONC 32.6 g/L CALC (32.0-36.0); NEUT# 5.51 thou/uL (1.82-7.42); RED BLOOD COUNT 4.02 mill/uL (4.70-6.10); RED CELL DISTRI WIDTH 14.1 % (11.5-15.5)
[2018-01-21 05:19] LABS: ANION GAP 13 (6-22 (CALC)); BUN 13 mg/dL (9-20); BUN/CREATININE RATIO 15 (12-20 (CALC)); CARBON DIOXIDE 26 mmol/l (22-30); CHLORIDE 106 mmol/l (95-108); CREATININE 0.9 mg/dL (0.7-1.3); GFR > 60 ML/MIN (>=60 (CALC)); GFR FOR AFR.AMER. > 60 ML/MIN (>=60 (CALC)); MAGNESIUM 1.3 mg/dL (1.6-2.3); POTASSIUM 3.9 mmol/l (3.5-5.1); SODIUM 142 mmol/l (137-146)
--- NOTE | 2018-01-21 07:00 | NUR ---
SHIFT CHANGE REPORT FROM STEPHANIE STANTON AWAKE AND ALERT, C/O UNCOMFORTABLE ALL OVER AND NEEDS TO REPOSITION NOW, ADVISED WILL ADDRESS NEEDS MARISSA WHEN STAFF IS AVAILABLE, WILL CONTINUE TO MONITOR, CALL CORTEZ IN REACH.
[2018-01-21 08:48] VITALS: BP 140/79
--- NOTE | 2018-01-21 10:28 | NUR ---
TOTAL BED BATH AND EMMA-CARE GIVEN NOW, IT TOOK 6 STAFF MEMBERS TO EXECUTE THIS PROCEDURE, DRESSING CHANGE TO WOUND DONE ALSO, PAIN CONCERN ADDRESSED, PT REPOSITIONED TO BEST OF STAFFS ABILITY, HE STILL COMPLAINS BED NOT COMFORTABLE AT THIS TIME, WILL CONTINUE TO MONITOR, CALL CORTEZ IN REACH.
[2018-01-21 11:00] VITALS: BP 131/71
--- NOTE | 2018-01-21 16:48 | NUR ---
RESTING IN BED AT THIS TIME, WANTS TO KNOW WHEN HE WILL BE LEAVING, ADVISED WILL UPDATE WHEN MD FINALIZE PLANS, ALL NEEDS/WANTS ADDRESSED, CALL CORTEZ IN REACH.
[2018-01-21 17:58] VITALS: BP 149/80
--- NOTE | 2018-01-21 19:15 | NUR ---
BEDSIDE REPORT RECEIVED FROM MIRTHA RODRIGUEZ. PT RESTING IN BED SEMI FOWLERS. C/O GENERALIZED PAIN, LORTAB GIVEN. RESPIRATIONS EVEN AND UNLABORED ON ROOM AIR. PLAN OF CARE REVIEWED. PT ENCOURAGED TO VERBALIZE CONCERNS. STATES UNDERSTANDING. SAFETY MEASURES IN PLACE. CALL LIGHT WITHIN REACH.
[2018-01-21 20:15] VITALS: BP 165/87
--- NOTE | 2018-01-21 22:59 | NUR ---
PT REPOSITIONED AND DRESSING TO BUTTOCK CHANGED R/T BEING SOILED.
[2018-01-22] VITALS (8 sets, daily range): BP systolic 125–180; BP diastolic 68–99
--- NOTE | 2018-01-22 | NUR ---
PT ASLEEP AT THIS TIME WITH NO SIGNS OF DISTRESS NOTED. RESPIRATIONS EVEN AND UNLABORED. IV FLUIDS INFUSING WITHOUT DIFFICULTY; IV SITE APPEARS HEALTHY. LOYOLA CATHETER DRAINING CLEAR YELLOW URINE IN ADEQUATE AMOUNTS. SAFETY MEASURES IN PLACE. CALL LIGHT WITHIN REACH.
--- NOTE | 2018-01-22 04:29 | NUR ---
PT ASLEEP AT THIS TIME WITH NO SIGNS OF DISTRESS. RESPIRATIONS EVEN AND UNLABORED. NO ACUTE CHANGES THROUGHOUT THE NIGHT. SAFETY MEASURES IN PLACE. CALL LIGHT WITHIN REACH.
--- NOTE | 2018-01-22 06:17 | NUR ---
PT TEARFUL AND VERBALIZES HIS DISCOMFORT AND WISHES TO BE HOME IN HIS OWN BED WITH HIS FAMILY. ATTEMPTED TO REPOSITION TO SIDE; PT DECLINES. ONLY WANTS TO BE TURNED ONTO SIDE FOR A FEW MINUTES AND THEN GO BACK ON HIS BACK. PT REPOSITIONED AT THIS TIME AND LORTAB GIVEN FOR DISCOMFORT.
[2018-01-22 07:36] LABS: HEMATOCRIT 38.6 % (39.0-50.0); HEMOGLOBIN 12.9 g/dl (14.0-18.0); IMMATURE GRANULOCYTES 3.3 % (0.0-1.0); MEAN CELL VOLUME 89.8 fL CALC (80.0-100.0); MEAN CORPUSCULAR HGB CONC 33.4 g/L CALC (32.0-36.0); NEUT# 6.22 thou/uL (1.82-7.42); RED BLOOD COUNT 4.3 mill/uL (4.70-6.10); RED CELL DISTRI WIDTH 13.7 % (11.5-15.5)
[2018-01-22 07:52] LABS: ANION GAP 13 (6-22 (CALC)); BUN 12 mg/dL (9-20); BUN/CREATININE RATIO 15 (12-20 (CALC)); CARBON DIOXIDE 28 mmol/l (22-30); CHLORIDE 103 mmol/l (95-108); CREATININE 0.8 mg/dL (0.7-1.3); GFR > 60 ML/MIN (>=60 (CALC)); GFR FOR AFR.AMER. > 60 ML/MIN (>=60 (CALC)); MAGNESIUM 1.6 mg/dL (1.6-2.3); POTASSIUM 3.7 mmol/l (3.5-5.1); SODIUM 141 mmol/l (137-146)
--- NOTE | 2018-01-22 08:45 | NUR ---
PT SITTING UP IN BED. ASSESSMENT COMPLETED. IVF INFUSING AT PRESCRIBED RATE. DRESSING TO COCCYX/BUTTOCK, CDI. PT C/O DRESSING IS NOT BEING DONE CORRECTLY. REQUESTING STAFF TO CALL HIS NURSE PITO ([facility]). 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 WILL CONTACT NURSE. POC DISCUSSED WITH PT. INFORMED HIM OF Q2H TURN. REQUESTING FOR PILLOW TO BE PLACED UNDER EACH BUTTOCK FOR PRESSURE RELIEF. PT C/O AIR MATTRESS NOT BEING "BIG ENOUGH". WILL CONTINUE TO MONITOR. CALL LIGHT IN REACH.
--- NOTE | 2018-01-22 10:26 | NUR ---
EMMA CARE PROVIDED DUE TO BM. PT CONTINUES C/O DRESSING CHANGE. INFORMED PT I CONTACTED NURSE. AQUACEL APPLIED TO WOUNDS, COVERED WITH ABD PAD, AND SECURED WITH MEDIOCRE TAPE. EXPLAINED TO PT THAT WE DO NOT CARRY MEDICORE TAPE IN HOUSE. AQUACEL DRESSING TO BUTTOCK/COCCYX AND ABD OVER WOUND WITH TEAGADERM TO SECURE OUTER PAD. PT NOT SATISFIED WITH DRESSING CHANGE. ONCE AGAIN EXPLAINED TO PT THAT TAPE IS NOT SUPPLIED IN HOUSE. ASKED PT IF DAUGHTER WILL BE VISITING AND IF SHE CAN BRING IN TAPE TO HOSPITAL? PT IS NOT SURE IF DAUGHTER WILL COME IN TODAY. WILL CONTINUE TO MONITOR. CALL LIGHT IN REACH.
--- NOTE | 2018-01-22 16:00 | NUR ---
[id number] REQUESTING SSE. ORDER RECIEVED. PT TOLERATED 700ML OF SSE. LARGE BROWN LOOSE BM NOTED. PT CONTINUING TO REQUESTING SSE AFTER LARGE BM. AFTER 20 MINUTES ANOTHER 400ML GIVEN RECTALLY. AGAIN PT REQUESTING MORE OF SSE. EXPLAINED TO PT THAT 1100ML HAVE BEEN GIVEN AND NO MORE BM NOTED AT THIS TIME. PT STATING "I FEEL IT." INFORMED PT THAT STAFF WOULD GIVE HIM A FEW MINUTES ALONE IN PRIVATE TO FINISH HAVING BM. PT UNSATASFIED WITH LIMITED TIME DEVOTED BY STAFF. EXPLAINED ONCE MORE THE IMPORTANCE OF SSE AND WAITING FOR RESULTS OF ENEMA. AFTER 20 MINUTES STAFF X3 RETURNING TO BEDSIDE. BATH, LINEN CHANGE, AND DRESSING CHANGE DONE AFTER BM. UNABLE TO REPOSITON OR GET LINEN UNDER PT WITH STAFF X3. HOUSE SUP NOTIFIED. A TOTAL OF 6 STAFF MEMBERS ASSISTED WITH LINEN CHANGE AND REPOSITIONING. PT UNABLE TO DO MUCH FOR SELF. STATES DAUGHTER AND HH NURSES HELP AT HOME. AGAIN PT C/O DRESSING CHANGE NOT BE CORRECT. WILL CONTINUE TO MONITOR DRESSING TO COCCYX/BUTTOCK. PT MEDICATED FOR PAIN. WILL CONTINUE TO MOTNIOR CALL LIGHT IN REACH.
--- NOTE | 2018-01-22 19:30 | NUR ---
BEDSIDE REPORT RECEIVED FROM JOLLY NEGRETE. PT RESTING IN BED SEMI FOWLERS WATCHING TV. ALERT AND ORIENTED; APPEARS SAD AND STATES THAT HE FEELS DEFEATED AND BECOMES TEARFUL WHEN DISCUSSING HIS CONCERNS AND HEALTH ISSUES. ENCOURAGED TO TALK ABOUT HIS FEELINGS AND TLC GIVEN. HE C/O GENERALIZED PAIN TO LOWER BACK, BUTT, AND LEGS. DISCUSSED Q2 TURNS AND DRESSING CHANGES TO BUTT. RESPIRATIONS EVEN AND UNLABORED ON ROOM AIR. PLAN OF CARE DISCUSSED; PT HAS QUESTIONS ABOUT PICC LINE INSERTION; QUESTIONS ANSWERED TO SATISFACTION. SAFETY MEASURES IN PLACE. CALL LIGHT WITHIN REACH.
--- NOTE | 2018-01-22 22:51 | NUR ---
PT TURNED ONTO LEFT SIDE FOR REPOSITIONING. EMMA CARE/LOYOLA CARE PERFORMED AFTER SMALL BM. DRESSING CHANGED TO SACRUM; AQUACEL WITH JOSE, ABD, AND PAPER TAPE; PT SEEMS SATISFIED WITH DRESSING CHANGE LONG IT DOES NOT COMPLETELY COVER RECTUM. BACK MASSAGED WITH LOTION FOR CIRCULATION. PT RETURNED TO SEMI VELAZCO POSITION WITH ONE PILLOW ON EACH SIDE OF BUTTOCK PER REQUEST FOR OFFLOADING AND COMFORT. IV FLUIDS INFUSING WITHOUT DIFFICULTY; IV SITE APPEARS HEALTHY. ABT INFUSED. LOYOLA DRAINING CLEAR YELLOW URINE IN ADEQUATE AMOUNTS. SCROTAL EDEMA IS IMPROVED. PT HAS NO FURTHER REQUESTS OR COMPLAINTS AT THIS TIME. SAFETY MEASURES IN PLACE. CALL LIGHT WITHIN REACH.
--- NOTE | 2018-01-23 00:35 | NUR ---
REPORT RECIEVED; PT APPEARS TO BE SLEEPING WITH EYES CLOSED. RESP EVEN AND UNLABORED. IV PATENT; NO REDNESS OR EDEMA NOTED. LOYOLA PATENT. TELE ON. CALL LIGHT WITHIN REACH.
--- NOTE | 2018-01-23 04:05 | NUR ---
PT APPEARS TO BE SLEEPING WITH EYES CLOSED. RESP EVEN AND UNLABORED; NO DISCOMFORT NOTED. LOYOLA PATENT. TELE ON. IV PATENT; SITE APPEARS HEALTHY. CALL LIGHT WITHIN REACH.
[2018-01-23 04:50] VITALS: BP 181/83
--- NOTE | 2018-01-23 05:11 | NUR ---
PT TURNED AND REPOSITIONED. EMMA CARE AND LOYOLA CARE PROVIDED. DRESSING CHANGED: AQUACEL, GAUZE, ABD, AND PAPER TAPE. CALL LIGHT WITHIN REACH.
[2018-01-23 05:30] LABS: HEMATOCRIT 37.6 % (39.0-50.0); HEMOGLOBIN 12.3 g/dl (14.0-18.0); IMMATURE GRANULOCYTES 2.5 % (0.0-1.0); MEAN CELL VOLUME 90.6 fL CALC (80.0-100.0); MEAN CORPUSCULAR HGB 29.6 pG CALC (26.0-32.0); MEAN CORPUSCULAR HGB CONC 32.7 g/L CALC (32.0-36.0); NEUT# 6.09 thou/uL (1.82-7.42); RED BLOOD COUNT 4.15 mill/uL (4.70-6.10); RED CELL DISTRI WIDTH 13.8 % (11.5-15.5)
[2018-01-23 05:55] LABS: ANION GAP 13 (6-22 (CALC)); BUN 12 mg/dL (9-20); BUN/CREATININE RATIO 15 (12-20 (CALC)); CARBON DIOXIDE 28 mmol/l (22-30); CHLORIDE 104 mmol/l (95-108); CREATININE 0.8 mg/dL (0.7-1.3); GFR > 60 ML/MIN (>=60 (CALC)); GFR FOR AFR.AMER. > 60 ML/MIN (>=60 (CALC)); MAGNESIUM 1.5 mg/dL (1.6-2.3); POTASSIUM 4.3 mmol/l (3.5-5.1); SODIUM 141 mmol/l (137-146)
[2018-01-23 06:05] VITALS: BP 171/84
--- NOTE | 2018-01-23 07:00 | NUR ---
RECEIVED BEDSIDE REPORT FROM PARVEZ AZEVEDO. RESTING IN SUPINE POSITION ON AIR MATTRESS. RESPS EVEN AND UNLABORED ON ROOM AIR, TELE MONITOR IN PLACE. #20 RFA INFUSING WITHOUT DIFFICULTY, SITE APPEARS HEALTHY. LOYOLA PATENT, DRAINING YELLOW URINE TO GRAVITY. VOICES NO NEEDS AT THIS TIME. PLAN OF CARE DISCUSSED. SAFETY PRECAUTIONS REINFORCED. BED IN LOWEST POSITION WITH WHEELS LOCKED. CALL LIGHT WITHIN REACH. ENCOURAGED PT TO CALL FOR ANY NEEDS.
[2018-01-23 07:32] VITALS: BP 163/78
--- NOTE | 2018-01-23 11:10 | NUR ---
RESPOSITIONED FOR COMFORT. RESPS EVEN AND UNLABORED ON ROOM AIR, TELE MONITOR IN PLACE. MEDIATED WITH LORTAB PO FOR C/O 10/10 LOW BACK PAIN. CALL LIGHT WITHIN REACH. WILL CONTINUE TO MONITOR.
[2018-01-23 11:17] VITALS: BP 139/77
--- NOTE | 2018-01-23 15:43 | NUR ---
IN SEMI FOWLERS ON AIR MATTRESS. RESPS EVEN AND UNLABORED ON ROOM AIR, TELE MONITOR IN PLACE. #20 RFA INFUSING WITHOUT DIFFICULTY, SITE APPEARS HEALTHY. MEDICATED WITH LORTAB PO FOR C/O 10/10 LOW BACK PAIN. CALL LIGHT WITHIN REACH. WILL CONTINUE TO MONITOR.
[2018-01-23 16:24] VITALS: BP 155/82
--- NOTE | 2018-01-23 19:45 | NUR ---
BEDSIDE REPORT RECEIVED FROM MIRTHA SILVA. PT RESTING IN BED SEMI FOWLERS ON AIR MATTRESS; ALERT AND ORIENTED. C/O MODERATE GENERALIZED PAIN AND REQUESTS TO BE REPOSITIONED AT THIS TIME. RESPIRATIONS EVEN AND UNLABORED ON ROOM AIR. TELE ON. PLAN OF CARE REVIEWED INCLUDING PICC INSERTION SCHEDULED TOMORROW, PT HAS NO QUESTIONS AT THIS TIMES. ENCOURAGED TO VERBALIZE CONCERNS. STATES UNDERSTANDING. SAFETY MEASURES IN PLACE. CALL LIGHT WITHIN REACH.
[2018-01-23 19:52] VITALS: BP 163/73
--- NOTE | 2018-01-23 20:30 | NUR ---
PT TURNED AND REPOITIONED AND BED BATH GIVEN. SMALL BOWEL MOVEMENT AT THIS TIME AND DRESSING TO BUTTOCK REPLACED. PT POSITIONED TO SATISFACTION.
[2018-01-24 00:16] VITALS: BP 154/82
--- NOTE | 2018-01-24 00:24 | NUR ---
PT SITTING UP IN BED WATCHING TV; VS STABLE. PLEASANT. IV SITE APPEARS HEALTHY AND FLUSHES; MERREM ADMINISTERED AT 2200 WITHOUT DIFFICULTY. LOYOLA DRAINING CLEAR YELLOW URINE IN ADEQUATE AMOUNTS; SMALL AMOUNT OF BLOODY URINE AT INSERTION SITE DURING MOVMENT. PT'S ONLY REQUEST AT THIS TIME IS TO BE MOVED UP IN BED; BOOSTED WITH 2 PERSON ASSIST. NO COMPLAINTS CURRENTLY. SAFTEY MEASURES IN PLACE. CALL LIGHT WITHIN REACH.
[2018-01-24 04:05] VITALS: BP 159/81
--- NOTE | 2018-01-24 04:27 | NUR ---
PT ASLEEP AT THIS TIME WITH NO SIGNS OF DISTRESS NOTED. RESPIRATIONS EVEN AND UNLABORED ON ROOM AIR. NO ACUTE CHANGES IN CONDITION THROUGHOUT THE NIGHT. SAFETY MEASURES IN PLACE. CALL LIGHT WITHIN REACH.
[2018-01-24 06:03] LABS: ANION GAP 17 (6-22 (CALC)); BUN 15 mg/dL (9-20); BUN/CREATININE RATIO 17 (12-20 (CALC)); CARBON DIOXIDE 26 mmol/l (22-30); CHLORIDE 102 mmol/l (95-108); CREATININE 0.8 mg/dL (0.7-1.3); GFR > 60 ML/MIN (>=60 (CALC)); GFR FOR AFR.AMER. > 60 ML/MIN (>=60 (CALC)); MAGNESIUM 1.6 mg/dL (1.6-2.3); POTASSIUM 4.6 mmol/l (3.5-5.1); SODIUM 140 mmol/l (137-146)
[2018-01-24 06:17] LABS: HEMATOCRIT 38.6 % (39.0-50.0); HEMOGLOBIN 12.8 g/dl (14.0-18.0); IMMATURE GRANULOCYTES 1.8 % (0.0-1.0); MEAN CELL VOLUME 91.5 fL CALC (80.0-100.0); MEAN CORPUSCULAR HGB 30.3 pG CALC (26.0-32.0); MEAN CORPUSCULAR HGB CONC 33.2 g/L CALC (32.0-36.0); NEUT# 6.25 thou/uL (1.82-7.42); RED BLOOD COUNT 4.22 mill/uL (4.70-6.10); RED CELL DISTRI WIDTH 13.8 % (11.5-15.5)
[2018-01-24 08:30] VITALS: BP 159/74
--- NOTE | 2018-01-24 08:30 | NUR ---
PT HAS BEEN RELAXING IN BED WITH NO DISTRESS NOTED. IV SITE IS FREE FROM REDNESS OR EDEMA. HR IS REG, PULSES ARE STRONG X4, ABD IS SOFT WITH ACTIVE BS. TELE MONITOR IN PLACE. CONTINUE TO OBSERVE AND MONTIOR.
[2018-01-24 10:12] VITALS: BP 159/74
[2018-01-24] MEDS ORDERED: MEROPENEM1 GM IV (10:30)
--- NOTE | 2018-01-24 12:30 | NUR ---
PT'S IV SITE DISCONTINUED CATHETER INTACT. NO REDNESS OR EDEMA. PICC LINE PLACED BY XRAY UPON PT BEING DISCHARGED. TO HOME. HOME HEALTH IN TO VISIT WITH PT. LOYOLA INTACT DRAINING YELLOW URINE. CONTINUE TO OBSERVE AMD MONITOR.
--- NOTE | 2018-01-24 14:00 | NUR ---
Discharge instructions given. Patient verbalizes understanding of same. Discharged in stable condition via Medical Transport to Home with *Other. All belongings sent with pt.
--- NOTE | 2018-01-24 14:15 | NUR ---
Discharge instructions given. Patient verbalizes understanding of same. Discharged in stable condition via Medical Transport to Home with *Other. All belongings sent with Dia MCMAHON
== END 2018-01-24 13:20 | DRG 662 ==
LOC: ED 08:44 → ED-I 09:09 → ED 10:57 → MS2 10:58 → ICU 10:58 → MS2 01-17 12:02
PROVIDERS: Emergency Medicine; Nurse Practitioner; Nurse Practitioner Family; Urology; ADMIT Internal Medicine; ATTEND Internal Medicine
PROC: 0W3R8ZZ Control Bleeding in Genitourinary Tract, Via Natural or Artificial Opening Endoscopic (ICD-10-PCS; principal; 2018-01-18)
PROC: 0TBB8ZX Excision of Bladder, Via Natural or Artificial Opening Endoscopic, Diagnostic (ICD-10-PCS; 2018-01-18)
PROC: 0T9B8ZZ Drainage of Bladder, Via Natural or Artificial Opening Endoscopic (ICD-10-PCS; 2018-01-18)
PROC: 05H933Z Insertion of Infusion Device into Right Brachial Vein, Percutaneous Approach (ICD-10-PCS; 2018-01-24)
PROC: B51MZZA Fluoroscopy of Right Upper Extremity Veins, Guidance (ICD-10-PCS; 2018-01-24)
DX: T83.518A Infection and inflammatory reaction due to other urinary catheter, initial encounter (principal); A41.51 Sepsis due to Escherichia coli [E. coli]; R65.21 Severe sepsis with septic shock; L89.153 Pressure ulcer of sacral region, stage 3; N17.9 Acute kidney failure, unspecified; L89.313 Pressure ulcer of right buttock, stage 3; G35 Multiple sclerosis; I48.0 Paroxysmal atrial fibrillation; N39.0 Urinary tract infection, site not specified; Z68.41 Body mass index [BMI] 40.0-44.9, adult; T83.091A Other mechanical complication of indwelling urethral catheter, initial encounter; N31.9 Neuromuscular dysfunction of bladder, unspecified; G83.9 Paralytic syndrome, unspecified; E66.01 Morbid (severe) obesity due to excess calories; E11.9 Type 2 diabetes mellitus without complications; I10 Essential (primary) hypertension; K59.09 Other constipation; M48.00 Spinal stenosis, site unspecified; F17.220 Nicotine dependence, chewing tobacco, uncomplicated; R31.0 Gross hematuria; G47.33 Obstructive sleep apnea (adult) (pediatric); R33.9 Retention of urine, unspecified; E83.42 Hypomagnesemia; Y84.6 Urinary catheterization as the cause of abnormal reaction of the patient, or of later complication, without mention of misadventure at the time of the procedure; Z79.01 Long term (current) use of anticoagulants; Z74.01 Bed confinement status; Z16.12 Extended spectrum beta lactamase (ESBL) resistance; Z91.11 Patient's noncompliance with dietary regimen
CPT/HCPCS: J0692; J3370; J3475; S0164

== ENCOUNTER 2018-02-18 15:22 | Emergency (ER) | payer MEDICARE, OTHER ==
[~2018-02-18] VITALS: Ht 193 cm; Wt 181.0 kg
[~2018-02-18 15:22] MED LIST changes: +DILTIAZEM HCL240 M2 PO; +ELIQUIS5 MG PO; +HYDROCO/APAP1 TA9 PO; +MEROPENEM1 GM IV; +METFORMIN500 MG PO; +NEURONTIN300 MG PO; +TIZANIDINE HCL4 MG PO
[2018-02-18 16:17] LABS: HEMATOCRIT 44.7 % (39.0-50.0); HEMOGLOBIN 14.5 g/dl (14.0-18.0); IMMATURE GRANULOCYTES 0.7 % (0.0-1.0); MEAN CELL VOLUME 90.3 fL CALC (80.0-100.0); MEAN CORPUSCULAR HGB 29.3 pG CALC (26.0-32.0); MEAN CORPUSCULAR HGB CONC 32.4 g/L CALC (32.0-36.0); NEUT# 9.56 thou/uL (1.82-7.42); RED BLOOD COUNT 4.95 mill/uL (4.70-6.10); RED CELL DISTRI WIDTH 13.9 % (11.5-15.5)
[2018-02-18 16:41] LABS: ALKALINE PHOSPHATASE 79 u/l (38-126); ANION GAP 14 (6-22 (CALC)); BILIRUBIN, TOTAL 0.5 mg/dL (0.0-1.4); BUN 7 mg/dL (9-20); BUN/CREATININE RATIO 10 (12-20 (CALC)); CARBON DIOXIDE 28 mmol/l (22-30); CHLORIDE 97 mmol/l (95-108); CREATININE 0.7 mg/dL (0.7-1.3); GFR > 60 ML/MIN (>=60 (CALC)); GFR FOR AFR.AMER. > 60 ML/MIN (>=60 (CALC)); POTASSIUM 4.7 mmol/l (3.5-5.1); SGOT/AST 19 u/l (17-59); SGPT/ALT 46 u/l (21-72); SODIUM 134 mmol/l (137-146)
[2018-02-18 16:46] LABS: ALBUMIN 3.8 g/dL (3.2-5.0); TOTAL PROTEIN 7.4 g/dL (6.3-8.2)
[2018-02-18 17:24] LABS: URINE BILIRUBIN - DIPSTICK NEGATIVE (NEGATIVE); URINE BLOOD DIPSTICK LARGE (NEGATIVE); URINE COLOR YELLOW; URINE GLUCOSE - DIPSTICK NEGATIVE (NEGATIVE); URINE KETONE NEGATIVE (NEGATIVE); URINE PH 5.5 (4.5-8.0); URINE PROTEIN - DIPSTICK NEGATIVE (NEG-TRACE); URINE UROBILINOGEN - DIPSTICK 0.2 E.U./dL (0.2)
[2018-02-18 17:28] LABS: URINE CLARITY CLOUDY; URINE LEUK ESTERASE LARGE (NEGATIVE); URINE NITRITE - DIPSTICK POSITIVE (Negative)
[2018-02-18 17:36] LABS: URINE BACTERIA MODERATE hpf; URINE RBC TNTC RBC/hpf (0-5); URINE SQUAMOUS EPITHELIAL CELL FEW EPI/hpf (0-FEW); URINE WBC TNTC WBC/hpf (0-5)
[2018-02-18 22:24] VITALS: BP 121/69
== END 2018-02-18 22:23 ==
LOC: ED 15:22
PROVIDERS: Family Medicine
DX: L89.154 Pressure ulcer of sacral region, stage 4 (principal); R31.9 Hematuria, unspecified; E66.01 Morbid (severe) obesity due to excess calories; R50.9 Fever, unspecified; F17.200 Nicotine dependence, unspecified, uncomplicated; I10 Essential (primary) hypertension; B95.61 Methicillin susceptible Staphylococcus aureus infection as the cause of diseases classified elsewhere

== ENCOUNTER 2018-03-01 10:56 | Inpatient (IN) | payer MEDICARE, OTHER ==
[~2018-03-01] VITALS: Ht 193 cm; Wt 154.0 kg
[2018-03-01 10:00] VITALS: BP 108/64
[2018-03-01] MEDS ORDERED: HYDROCO/APAP1 T13 PO (11:03)
[2018-03-01 11:32] LABS: HEMOGLOBIN 12.7 g/dl (14.0-18.0); IMMATURE GRANULOCYTES 0.6 % (0.0-1.0); MEAN CELL VOLUME 90.6 fL CALC (80.0-100.0); MEAN CORPUSCULAR HGB 29.9 pG CALC (26.0-32.0); NEUT# 9.16 thou/uL (1.82-7.42); RED BLOOD COUNT 4.25 mill/uL (4.70-6.10); RED CELL DISTRI WIDTH 14.1 % (11.5-15.5)
[2018-03-01 11:42] LABS: HEMATOCRIT 38.5 % (39.0-50.0)
[2018-03-01 12:38] LABS: ALBUMIN 3.5 g/dL (3.2-5.0); ALKALINE PHOSPHATASE 69 u/l (38-126); ANION GAP 15 (6-22 (CALC)); BILIRUBIN, TOTAL 0.3 mg/dL (0.0-1.4); BUN 13 mg/dL (9-20); BUN/CREATININE RATIO 19 (12-20 (CALC)); CARBON DIOXIDE 25 mmol/l (22-30); CHLORIDE 100 mmol/l (95-108); CREATININE 0.7 mg/dL (0.7-1.3); GFR > 60 ML/MIN (>=60 (CALC)); GFR FOR AFR.AMER. > 60 ML/MIN (>=60 (CALC)); POTASSIUM 4.6 mmol/l (3.5-5.1); SGOT/AST 16 u/l (17-59); SGPT/ALT 34 u/l (21-72); SODIUM 135 mmol/l (137-146)
[2018-03-01 13:56] LABS: URINE BILIRUBIN - DIPSTICK NEGATIVE (NEGATIVE); URINE BLOOD DIPSTICK LARGE (NEGATIVE); URINE CLARITY CLOUDY; URINE COLOR YELLOW; URINE GLUCOSE - DIPSTICK >=1000 mg/dL (NEGATIVE); URINE KETONE NEGATIVE (NEGATIVE); URINE LEUK ESTERASE MODERATE (NEGATIVE); URINE NITRITE - DIPSTICK POSITIVE (Negative); URINE PH 5.5 (4.5-8.0); URINE PROTEIN - DIPSTICK NEGATIVE (NEG-TRACE); URINE UROBILINOGEN - DIPSTICK 0.2 E.U./dL (0.2)
[2018-03-01 13:57] LABS: URINE BACTERIA MANY hpf; URINE EPITHELIAL CELLS MODERATE EPI/hpf (0-FEW); URINE RBC 25-50 RBC/hpf (0-5); URINE WBC 20-50 WBC/hpf (0-5)
[2018-03-01 16:01] VITALS: BP 125/58
[2018-03-01 19:00] VITALS: BP 117/79
[2018-03-02 04:30] VITALS: BP 131/78
[2018-03-02 05:10] LABS: HEMATOCRIT 41.5 % (39.0-50.0); HEMOGLOBIN 13.5 g/dl (14.0-18.0); IMMATURE GRANULOCYTES 0.7 % (0.0-1.0); MEAN CELL VOLUME 90.8 fL CALC (80.0-100.0); MEAN CORPUSCULAR HGB 29.5 pG CALC (26.0-32.0); MEAN CORPUSCULAR HGB CONC 32.5 g/L CALC (32.0-36.0); NEUT# 9.01 thou/uL (1.82-7.42); RED BLOOD COUNT 4.57 mill/uL (4.70-6.10); RED CELL DISTRI WIDTH 13.9 % (11.5-15.5)
[2018-03-02 05:21] LABS: ANION GAP 14 (6-22 (CALC)); BUN 11 mg/dL (9-20); BUN/CREATININE RATIO 18 (12-20 (CALC)); CARBON DIOXIDE 26 mmol/l (22-30); CHLORIDE 99 mmol/l (95-108); CREATININE 0.6 mg/dL (0.7-1.3); GFR > 60 ML/MIN (>=60 (CALC)); GFR FOR AFR.AMER. > 60 ML/MIN (>=60 (CALC)); POTASSIUM 4.3 mmol/l (3.5-5.1); SODIUM 134 mmol/l (137-146)
[2018-03-02 09:14] VITALS: BP 110/65
[2018-03-02 09:18] VITALS: BP 110/65
== END 2018-03-02 16:36 | DRG 592 ==
LOC: MS2 10:56
PROVIDERS: Nurse Practitioner Family; ADMIT Internal Medicine; ATTEND Internal Medicine
DX: L89.153 Pressure ulcer of sacral region, stage 3 (principal); Z68.41 Body mass index [BMI] 40.0-44.9, adult; T83.511A Infection and inflammatory reaction due to indwelling urethral catheter, initial encounter; N39.0 Urinary tract infection, site not specified; G82.20 Paraplegia, unspecified; L08.9 Local infection of the skin and subcutaneous tissue, unspecified; I10 Essential (primary) hypertension; E66.01 Morbid (severe) obesity due to excess calories; G35 Multiple sclerosis; K59.09 Other constipation; M48.00 Spinal stenosis, site unspecified; L89.322 Pressure ulcer of left buttock, stage 2; L89.312 Pressure ulcer of right buttock, stage 2; I48.0 Paroxysmal atrial fibrillation; F17.220 Nicotine dependence, chewing tobacco, uncomplicated; E11.9 Type 2 diabetes mellitus without complications; E83.42 Hypomagnesemia; B95.61 Methicillin susceptible Staphylococcus aureus infection as the cause of diseases classified elsewhere; G47.33 Obstructive sleep apnea (adult) (pediatric); Z79.891 Long term (current) use of opiate analgesic; Y84.6 Urinary catheterization as the cause of abnormal reaction of the patient, or of later complication, without mention of misadventure at the time of the procedure; Z79.01 Long term (current) use of anticoagulants; Z74.01 Bed confinement status; Z87.440 Personal history of urinary (tract) infections
CPT/HCPCS: J0692; J1650; J3370

== ENCOUNTER 2018-03-18 14:24 | Emergency (ER) | payer MEDICARE, OTHER ==
[~2018-03-18] VITALS: Ht 193 cm; Wt 152.7 kg
[~2018-03-18 14:24] MED LIST changes: +HYDROCO/APAP1 T13 PO
[2018-03-18] MEDS ORDERED: ATORVASTATIN CA10 MG PO (15:05)
[2018-03-18 16:00] VITALS: BP 133/60
== END 2018-03-18 16:00 ==
LOC: ED 14:24
DX: K94.03 Colostomy malfunction (principal); L89.159 Pressure ulcer of sacral region, unspecified stage; E66.01 Morbid (severe) obesity due to excess calories; I10 Essential (primary) hypertension; G35 Multiple sclerosis; E11.9 Type 2 diabetes mellitus without complications; M48.00 Spinal stenosis, site unspecified; F17.210 Nicotine dependence, cigarettes, uncomplicated; Y83.3 Surgical operation with formation of external stoma as the cause of abnormal reaction of the patient, or of later complication, without mention of misadventure at the time of the procedure; Z74.01 Bed confinement status

== ENCOUNTER 2018-08-10 13:10 | Inpatient (IN) | payer MEDICARE, OTHER ==
[~2018-08-10] VITALS: Ht 193 cm; Wt 220.0 kg
[2018-08-10] VITALS (14 sets, daily range): BP systolic 78–157; BP diastolic 56–92
[~2018-08-10 13:10] MED LIST changes: +ATORVASTATIN CA10 MG PO
[2018-08-10] MEDS ORDERED: BACLOFEN10 MG PO ×2 (14:27→14:29)
[2018-08-10] MEDS ORDERED: GABAPENTIN600 MG PO (14:28)
[2018-08-10] MEDS ORDERED: LORTAB 1010 MG PO (14:30)
[2018-08-10 14:51] LABS: HEMATOCRIT 42.8 % (39.0-50.0); HEMOGLOBIN 13.6 g/dl (14.0-18.0); IMMATURE GRANULOCYTES 4.2 % (0.0-5.0); MEAN CORPUSCULAR HGB 26.7 pG CALC (26.0-32.0); MEAN CORPUSCULAR HGB CONC 31.8 g/L CALC (32.0-36.0); RED BLOOD COUNT 5.09 mill/uL (4.70-6.10); RED CELL DISTRI WIDTH 15.5 % (11.5-15.5)
[2018-08-10 15:00] LABS: ALBUMIN 3.3 g/dL (3.2-5.0); ALKALINE PHOSPHATASE 66 u/l (38-126); ANION GAP 17 (6-22 (CALC)); BILIRUBIN, TOTAL 0.8 mg/dL (0.0-1.4); BUN 25 mg/dL (9-20); CARBON DIOXIDE 23 mmol/l (22-30); CHLORIDE 96 mmol/l (95-108); LIPASE < 10 u/l (23-300); POTASSIUM 4.1 mmol/l (3.5-5.1); SODIUM 131 mmol/l (137-146); TOTAL PROTEIN 6.1 g/dL (6.3-8.2)
[2018-08-10 15:01] LABS: MEAN CELL VOLUME 84.1 fL CALC (80.0-100.0); PLATELET COUNT 200 thou/uL (130-400)
[2018-08-10 15:13] LABS: BUN/CREATININE RATIO 7 (12-20 (CALC)); CREATININE 3.8 mg/dL (0.7-1.3); GFR 17 ML/MIN (>=60 (CALC)); GFR FOR AFR.AMER. 20 ML/MIN (>=60 (CALC)); SGOT/AST 31 u/l (17-59)
[2018-08-10 15:15] LABS: URINE BLOOD DIPSTICK LARGE (NEGATIVE); URINE COLOR YELLOW; URINE GLUCOSE - DIPSTICK NEGATIVE (NEGATIVE); URINE KETONE 15 mg/dL (NEGATIVE); URINE NITRITE - DIPSTICK NEGATIVE (Negative); URINE PROTEIN - DIPSTICK 100 mg/dL (NEG-TRACE); URINE SPECIFIC GRAVITY >=1.030; URINE UROBILINOGEN - DIPSTICK 0.2 E.U./dL (0.2)
[2018-08-10 15:18] LABS: BAND 22 % (0-8); MANUAL DIFFERENTIAL YES
[2018-08-10 15:23] LABS: URINE BILIRUBIN - DIPSTICK NEGATIVE (NEGATIVE); URINE CLARITY TURBID; URINE LEUK ESTERASE LARGE (NEGATIVE)
[2018-08-10 15:24] LABS: URINE WBC TNTC WBC/hpf (0-5)
[2018-08-11] VITALS (33 sets, daily range): BP systolic 71–114; BP diastolic 47–71
[2018-08-11 06:11] LABS: HEMATOCRIT 38.4 % (39.0-50.0); HEMOGLOBIN 12.5 g/dl (14.0-18.0); IMMATURE GRANULOCYTES 1.4 % (0.0-5.0); MEAN CELL VOLUME 82.2 fL CALC (80.0-100.0); MEAN CORPUSCULAR HGB 26.8 pG CALC (26.0-32.0); MEAN CORPUSCULAR HGB CONC 32.6 g/L CALC (32.0-36.0); PLATELET COUNT 163 thou/uL (130-400); RED BLOOD COUNT 4.67 mill/uL (4.70-6.10); RED CELL DISTRI WIDTH 15.5 % (11.5-15.5)
[2018-08-11 06:38] LABS: BILIRUBIN, TOTAL 0.5 mg/dL (0.0-1.4); POTASSIUM 4.1 mmol/l (3.5-5.1)
[2018-08-11 06:57] LABS: MANUAL DIFFERENTIAL YES
[2018-08-11 06:58] LABS: BAND 4 % (0-8)
[2018-08-11 06:59] LABS: MAGNESIUM 0.9 mg/dL (1.6-2.3); TOTAL PROTEIN 4.7 g/dL (6.3-8.2)
[2018-08-11 07:00] LABS: ALBUMIN 2.4 g/dL (3.2-5.0)
[2018-08-12] VITALS (16 sets, daily range): BP systolic 88–143; BP diastolic 58–78
[2018-08-12 05:22] LABS: HEMATOCRIT 37.3 % (39.0-50.0); HEMOGLOBIN 12.5 g/dl (14.0-18.0); IMMATURE GRANULOCYTES 1.4 % (0.0-5.0); MEAN CELL VOLUME 81.3 fL CALC (80.0-100.0); MEAN CORPUSCULAR HGB 27.2 pG CALC (26.0-32.0); MEAN CORPUSCULAR HGB CONC 33.5 g/L CALC (32.0-36.0); NEUT# 20.18 thou/uL (1.82-7.42); RED BLOOD COUNT 4.59 mill/uL (4.70-6.10); RED CELL DISTRI WIDTH 15.9 % (11.5-15.5)
[2018-08-12 05:37] LABS: ALBUMIN 2.5 g/dL (3.2-5.0); POTASSIUM 4.2 mmol/l (3.5-5.1)
[2018-08-12 05:40] LABS: MAGNESIUM 1.8 mg/dL (1.6-2.3)
== END 2018-08-12 15:15 | disposition short-term general hospital (02) | DRG 698 ==
LOC: ED 13:10 → ED-I 15:05 → ED 15:27 → ICU 15:28 → ED 15:37 → ED-I 15:37 → ICU 08-12 15:15
PROVIDERS: Family Medicine; Internal Medicine Nephrology; ADMIT Internal Medicine Nephrology; ATTEND Internal Medicine Nephrology
PROC: 02HV33Z Insertion of Infusion Device into Superior Vena Cava, Percutaneous Approach (ICD-10-PCS; principal; 2018-08-10)
DX: T83.518A Infection and inflammatory reaction due to other urinary catheter, initial encounter (principal); A41.59 Other Gram-negative sepsis; N17.0 Acute kidney failure with tubular necrosis; R65.21 Severe sepsis with septic shock; N39.0 Urinary tract infection, site not specified; Z68.43 Body mass index [BMI] 50.0-59.9, adult; E87.1 Hypo-osmolality and hyponatremia; E87.2 Acidosis; I48.92 Unspecified atrial flutter; G35 Multiple sclerosis; E11.22 Type 2 diabetes mellitus with diabetic chronic kidney disease; I12.9 Hypertensive chronic kidney disease with stage 1 through stage 4 chronic kidney disease, or unspecified chronic kidney disease; N18.3 Chronic kidney disease, stage 3 (moderate); E11.65 Type 2 diabetes mellitus with hyperglycemia; I48.2 Chronic atrial fibrillation; K59.09 Other constipation; I95.9 Hypotension, unspecified; E66.01 Morbid (severe) obesity due to excess calories; L89.150 Pressure ulcer of sacral region, unstageable; E86.0 Dehydration; F17.220 Nicotine dependence, chewing tobacco, uncomplicated; M48.061 Spinal stenosis, lumbar region without neurogenic claudication; D64.9 Anemia, unspecified; E83.42 Hypomagnesemia; Y84.6 Urinary catheterization as the cause of abnormal reaction of the patient, or of later complication, without mention of misadventure at the time of the procedure; Z93.3 Colostomy status; Z74.01 Bed confinement status; Z87.440 Personal history of urinary (tract) infections; Z16.12 Extended spectrum beta lactamase (ESBL) resistance; B96.4 Proteus (mirabilis) (morganii) as the cause of diseases classified elsewhere
CPT/HCPCS: J0282; J3475

== ENCOUNTER 2018-08-18 19:20 | Inpatient (IN) | payer MEDICARE, OTHER ==
[~2018-08-18] VITALS: Ht 193 cm; Wt 249.0 kg
[~2018-08-18 19:20] MED LIST changes: +BACLOFEN10 MG PO; +GABAPENTIN600 MG PO; +LORTAB 1010 MG PO
[2018-08-18 19:50] VITALS: BP 177/82
[2018-08-18] MEDS ORDERED: ANCEF IJ (20:55)
[2018-08-18] MEDS ORDERED: FAMOTIDINE20 M1 IV (20:55)
[2018-08-18] MEDS ORDERED: FUROSEMIDE20 MG IV (20:56)
[2018-08-19 04:54] VITALS: BP 130/68
[2018-08-19 05:55] LABS: HEMATOCRIT 34.6 % (39.0-50.0); HEMOGLOBIN 11.1 g/dl (14.0-18.0); IMMATURE GRANULOCYTES 3.2 % (0.0-5.0); MEAN CELL VOLUME 81.8 fL CALC (80.0-100.0); MEAN CORPUSCULAR HGB 26.2 pG CALC (26.0-32.0); MEAN CORPUSCULAR HGB CONC 32.1 g/L CALC (32.0-36.0); NEUT# 11.48 thou/uL (1.82-7.42); RED BLOOD COUNT 4.23 mill/uL (4.70-6.10); RED CELL DISTRI WIDTH 15.8 % (11.5-15.5)
[2018-08-19 06:11] LABS: ALBUMIN 2.6 g/dL (3.2-5.0); BILIRUBIN, TOTAL 0.2 mg/dL (0.0-1.4); MAGNESIUM 1.5 mg/dL (1.6-2.3); TOTAL PROTEIN 5.4 g/dL (6.3-8.2)
[2018-08-19 06:24] LABS: CREATININE 3.2 mg/dL (0.7-1.3)
[2018-08-19 07:58] VITALS: BP 149/86
[2018-08-19 15:30] VITALS: BP 173/90
[2018-08-20] VITALS (7 sets, daily range): BP systolic 114–150; BP diastolic 67–81
[2018-08-20 05:14] LABS: HEMATOCRIT 37.8 % (39.0-50.0); HEMOGLOBIN 11.9 g/dl (14.0-18.0); IMMATURE GRANULOCYTES 1.7 % (0.0-5.0); MEAN CELL VOLUME 82.9 fL CALC (80.0-100.0); MEAN CORPUSCULAR HGB 26.1 pG CALC (26.0-32.0); MEAN CORPUSCULAR HGB CONC 31.5 g/L CALC (32.0-36.0); NEUT# 13.93 thou/uL (1.82-7.42); RED BLOOD COUNT 4.56 mill/uL (4.70-6.10); RED CELL DISTRI WIDTH 15.7 % (11.5-15.5)
[2018-08-20 05:55] LABS: ALBUMIN 2.8 g/dL (3.2-5.0); BILIRUBIN, TOTAL 0.3 mg/dL (0.0-1.4); CREATININE 2.6 mg/dL (0.7-1.3); MAGNESIUM 1.5 mg/dL (1.6-2.3); TOTAL PROTEIN 5.9 g/dL (6.3-8.2)
[2018-08-21 04:00] VITALS: BP 95/59
[2018-08-21 08:15] VITALS: BP 135/83
[2018-08-21 12:00] VITALS: BP 129/74
[2018-08-21 13:41] LABS: CREATININE 1.9 mg/dL (0.7-1.3)
[2018-08-21 13:44] LABS: MAGNESIUM 1.9 mg/dL (1.6-2.3); POTASSIUM 5.7 mmol/l (3.5-5.1)
[2018-08-21 16:00] VITALS: BP 133/79
[2018-08-21 19:40] VITALS: BP 124/78
[2018-08-22] VITALS (7 sets, daily range): BP systolic 102–148; BP diastolic 59–77
[2018-08-22 12:01] LABS: HEMATOCRIT 41.3 % (39.0-50.0); HEMOGLOBIN 12.7 g/dl (14.0-18.0); IMMATURE GRANULOCYTES 0.9 % (0.0-5.0); MEAN CELL VOLUME 85.3 fL CALC (80.0-100.0); MEAN CORPUSCULAR HGB 26.2 pG CALC (26.0-32.0); MEAN CORPUSCULAR HGB CONC 30.8 g/L CALC (32.0-36.0); NEUT# 11.96 thou/uL (1.82-7.42); RED BLOOD COUNT 4.84 mill/uL (4.70-6.10); RED CELL DISTRI WIDTH 15.6 % (11.5-15.5)
[2018-08-22 12:43] LABS: PROTHROMBIN TIME 10.6 SECONDS (9.0-12.5)
[2018-08-22 12:48] LABS: CREATININE 1.8 mg/dL (0.7-1.3)
[2018-08-22 13:00] LABS: POTASSIUM 6.5 mmol/l (3.5-5.1)
[2018-08-23 04:10] VITALS: BP 108/69
[2018-08-23 05:22] LABS: HEMOGLOBIN 11.7 g/dl (14.0-18.0); IMMATURE GRANULOCYTES 1.1 % (0.0-5.0); MEAN CELL VOLUME 84.6 fL CALC (80.0-100.0); MEAN CORPUSCULAR HGB 26.1 pG CALC (26.0-32.0); MEAN CORPUSCULAR HGB CONC 30.8 g/L CALC (32.0-36.0); NEUT# 11.48 thou/uL (1.82-7.42); RED BLOOD COUNT 4.49 mill/uL (4.70-6.10); RED CELL DISTRI WIDTH 15.5 % (11.5-15.5)
[2018-08-23 05:35] LABS: ALBUMIN 3.1 g/dL (3.2-5.0); BILIRUBIN, TOTAL 0.3 mg/dL (0.0-1.4); CREATININE 1.8 mg/dL (0.7-1.3); MAGNESIUM 1.5 mg/dL (1.6-2.3); TOTAL PROTEIN 6.6 g/dL (6.3-8.2)
[2018-08-23 06:45] LABS: POTASSIUM 6.3 mmol/l (3.5-5.1)
[2018-08-23 07:37] VITALS: BP 116/67; BP 175/80
[2018-08-23] MEDS ORDERED: CEFAZOLIN1 G1 IV (11:11)
[2018-08-23 11:20] VITALS: BP 104/63
[2018-08-23 15:35] VITALS: BP 114/69
[2018-08-23 19:27] VITALS: BP 131/79
== END 2018-08-23 20:08 | DRG 698 ==
LOC: MS2 19:20
PROVIDERS: Internal Medicine; ADMIT Internal Medicine Nephrology; ATTEND Internal Medicine Nephrology
PROC: 0HB6XZZ Excision of Back Skin, External Approach (ICD-10-PCS; principal; 2018-08-19)
PROC: 0T2BX0Z Change Drainage Device in Bladder, External Approach (ICD-10-PCS; 2018-08-19)
PROC: 05HB33Z Insertion of Infusion Device into Right Basilic Vein, Percutaneous Approach (ICD-10-PCS; 2018-08-22)
PROC: B54MZZA Ultrasonography of Right Upper Extremity Veins, Guidance (ICD-10-PCS; 2018-08-22)
DX: T83.511A Infection and inflammatory reaction due to indwelling urethral catheter, initial encounter (principal); L89.154 Pressure ulcer of sacral region, stage 4; A41.59 Other Gram-negative sepsis; R65.20 Severe sepsis without septic shock; N17.9 Acute kidney failure, unspecified; G82.20 Paraplegia, unspecified; Z68.42 Body mass index [BMI] 45.0-49.9, adult; N39.0 Urinary tract infection, site not specified; E83.42 Hypomagnesemia; D64.9 Anemia, unspecified; E83.39 Other disorders of phosphorus metabolism; E66.01 Morbid (severe) obesity due to excess calories; G35 Multiple sclerosis; K59.09 Other constipation; F17.220 Nicotine dependence, chewing tobacco, uncomplicated; G47.33 Obstructive sleep apnea (adult) (pediatric); I48.0 Paroxysmal atrial fibrillation; I25.10 Atherosclerotic heart disease of native coronary artery without angina pectoris; E11.42 Type 2 diabetes mellitus with diabetic polyneuropathy; E11.65 Type 2 diabetes mellitus with hyperglycemia; E87.5 Hyperkalemia; E11.22 Type 2 diabetes mellitus with diabetic chronic kidney disease; I12.9 Hypertensive chronic kidney disease with stage 1 through stage 4 chronic kidney disease, or unspecified chronic kidney disease; N18.3 Chronic kidney disease, stage 3 (moderate); Y84.6 Urinary catheterization as the cause of abnormal reaction of the patient, or of later complication, without mention of misadventure at the time of the procedure; Z87.440 Personal history of urinary (tract) infections; Z93.3 Colostomy status; Z74.01 Bed confinement status; Z79.01 Long term (current) use of anticoagulants
CPT/HCPCS: G0378; G0379; J3475

== ENCOUNTER → 2018-11-15 | Outpatient (REF) | payer MEDICARE ==
[~2018-11-15] MED LIST changes: +ANCEF IJ; +CEFAZOLIN1 G1 IV; +FAMOTIDINE20 M1 IV; +FUROSEMIDE20 MG IV
== END | disposition home or self-care (01) ==
LOC: LABSPEC 15:09
PROVIDERS: ATTEND Surgery
DX: S31.809A Unspecified open wound of unspecified buttock, initial encounter (principal); B95.1 Streptococcus, group B, as the cause of diseases classified elsewhere

== ENCOUNTER 2018-12-30 14:42 | Inpatient (IN) | payer MEDICARE, OTHER ==
[~2018-12-30] VITALS: Ht 193 cm; Wt 167.0 kg
--- NOTE | 2018-12-30 14:42 | NUR ---
PT TO ROOM VIA EMS STRETCHER.
[2018-12-30 16:19] LABS: HEMATOCRIT 42.3 % (39.0-50.0); HEMOGLOBIN 12.5 g/dl (14.0-18.0); IMMATURE GRANULOCYTES 0.5 % (0.0-5.0); MEAN CELL VOLUME 83.6 fL CALC (80.0-100.0); MEAN CORPUSCULAR HGB 24.7 pG CALC (26.0-32.0); MEAN CORPUSCULAR HGB CONC 29.6 g/L CALC (32.0-36.0); NEUT# 8.19 thou/uL (1.82-7.42); RED BLOOD COUNT 5.06 mill/uL (4.70-6.10); RED CELL DISTRI WIDTH 15.5 % (11.5-15.5)
[2018-12-30 16:34] LABS: ALBUMIN 3.4 g/dL (3.2-5.0); ALKALINE PHOSPHATASE 71 u/l (38-126); ANION GAP 16 (6-22 (CALC)); BILIRUBIN, TOTAL 0.3 mg/dL (0.0-1.4); BUN 11 mg/dL (9-20); BUN/CREATININE RATIO 13 (12-20 (CALC)); CARBON DIOXIDE 31 mmol/l (22-30); CHLORIDE 98 mmol/l (95-108); CREATININE 0.8 mg/dL (0.7-1.3); GFR > 60 ML/MIN (>=60 (CALC)); GFR FOR AFR.AMER. > 60 ML/MIN (>=60 (CALC)); POTASSIUM 3.9 mmol/l (3.5-5.1); SODIUM 141 mmol/l (137-146); TOTAL PROTEIN 6.8 g/dL (6.3-8.2)
--- NOTE | 2018-12-30 16:42 | NUR ---
PT PROVIDED MORPHINE FOR PAIN RELIEF.
[2018-12-30 16:46] LABS: SGOT/AST 13 u/l (17-59)
--- NOTE | 2018-12-30 17:08 | NUR ---
WOUND TO LEFT BUTTOCK CHEEK APPEARS AT LEAST 10 CM IN LENGTH AND DEPTH OF AT LEAST 5-6 CM. FOUL ODOR NOTED.
--- NOTE | 2018-12-30 18:37 | NUR ---
MEAL TRAY PROVIDED. DAUGHTERS X 2 AT BEDSIDE.
--- NOTE | 2018-12-30 18:38 | NUR ---
I CALLED [facility] AND SPOKE WITH RANJANA @[phone]. I ORDERED THE [employer] BARIATRIC BED AND THE CONFIRMATION NUMBER IS [id number].
--- NOTE | 2018-12-30 20:17 | NUR ---
CALL PLACED TO [facility] TO ASC[facility]AIN DELIVERY TIME FOR BARIATRIC MATTRESS. WAS ADVISED THAT MESSAGE WILL BE SENT TO DELIVERING CORE EXTRUDER FOR UPDATED ETA.
--- NOTE | 2018-12-30 20:43 | NUR ---
SPOKE WITH CULINARY ARTS TEACHER FROM [facility]. HE ADVISED THAT HE IS STILL APPROXIMATELY 3 HOURS AWAY FROM DELIVERY TIME. CALLED Becca NATH RN IN ER AND ADVISED HIM THAT ALEXA WHITTINGTON BE BROUGHT TO HIS ROOM NOW AND THAT WE WILL TRANSFER BEDS WHEN AVAILABLE.
--- NOTE | 2018-12-30 21:00 | NUR ---
PT ARRIVED TO FLOOR VIA STRETCHER, ACCOMPANIED BY MIRTHA CUEVAS. PT ALERT AND ORIENTED. 6 PERSON ASSIST FROM STRETCHER TO BED. DRESSING ON COCCYX SATURATED. DRESSING REMOVED PICTURES TAKEN FOR THE CHART, WOUND CLENSED WITH SALINE, NEW WET TO DRY DRESSING APPLIED. PT REPOSITIONED IN BED. VS OBTAINED AND ASSESSMENT COMPLETED. PT ORIENTED TO ROOM AND CALL CORTEZ SYSTEM. PT INFORMED OF WAIT TIME FOR AIR MATTRESS. COLOSTOMY CDI. LOYOLA DRAINING TO GRAVITY MILD REDNESS NOTED TO GROIN. TELE MONITOR IN PLACE. CALL CORTEZ WITH IN REACH. WILL CONTINUE TO MONITOR.
--- NOTE | 2018-12-30 21:10 | NUR ---
PT TAKEN TO ROOM 279, REPORT WAS TO KIRAN. STAFF ASSISTED IN TRANSFERRING PT TO WIDE BED, PT TOLERATED WELL.
[2018-12-30 23:15] VITALS: BP 120/69
--- NOTE | 2018-12-30 23:55 | NUR ---
AIR MATTRESS ARRIVED. 8 PERSON ASSIST FROM BED TO AIR MATRESS AND REPOSITIONED. PT TOLERATED WELL. RESPIRATIONS SHALLOW ON RA, LUNGS SOUND DIMINISHED. LOYOLA DRAINING TO GRAVITY. DRESSING ON COCCYX CDI. TELE MONITOR IN PLACE. # 20 LAC INFUSING FLUIDS PER EMAR ORDERS. COLOSTOMY CDI. SAFETY PRECAUTIONS IN PLACE, CALL LIGHT WITHIN REACH, WILL CONTINUE TO MONITOR.
--- NOTE | 2018-12-31 04:37 | NUR ---
PT RESTING IN BED. RESPIRATIONS EVEN AND UNLABORED ON RA. NO SIGNS OR SYMPTOMS OF DISTRESS. WILL CONTINUE TO MONITOR.
[2018-12-31 04:46] VITALS: BP 124/65
[2018-12-31 09:00] VITALS: BP 115/51
--- NOTE | 2018-12-31 09:00 | NUR ---
ASSESSMENT IS COMPLETED: IV SITE IS FREE FROM REDNESS OR EDEMA. HR IS REG,PULSES ARE STRONG X4, ABD IS SOFT WITH ACTIVE BS. BREATH SOUNDS ARE CLEAR, BILATERALLY, LOYOLA DRAINING YELLOW URINE COLOSTOMY BAG INTACT. CONTINUE TO OBSERVE AND MONITOR.
--- NOTE | 2018-12-31 09:59 | NUR ---
Vancomycin consult Age: 53 yo Serum creatinine: 0.8 mg/dL Height: 76.0 Inches Weight (kg): 167 IBW (kg): 86.80 Dosing wt(kg): 167 Estimated Creatinine clearance (ml/min): 130 Vd (liters): 116.9 (factor used: 0.7 L/kg) Kev (hr-1): 0.112 Half life (hrs): 6.19 Vancomycin 1500 mg q 8 hrs with an expected Cpeak of 19 mcg/ml and an expected Ctrough of 10 mcg/ml
[2018-12-31 10:00] LABS: HEMOGLOBIN 10.8 g/dl (14.0-18.0); IMMATURE GRANULOCYTES 0.5 % (0.0-5.0); MEAN CELL VOLUME 83.6 fL CALC (80.0-100.0); MEAN CORPUSCULAR HGB 24.9 pG CALC (26.0-32.0); MEAN CORPUSCULAR HGB CONC 29.8 g/L CALC (32.0-36.0); NEUT# 7.47 thou/uL (1.82-7.42); RED BLOOD COUNT 4.33 mill/uL (4.70-6.10); RED CELL DISTRI WIDTH 15.3 % (11.5-15.5)
[2018-12-31 10:01] LABS: HEMATOCRIT 36.2 % (39.0-50.0)
[2018-12-31 10:22] LABS: ANION GAP 11 (6-22 (CALC)); BUN 10 mg/dL (9-20); BUN/CREATININE RATIO 16 (12-20 (CALC)); CARBON DIOXIDE 29 mmol/l (22-30); CHLORIDE 103 mmol/l (95-108); CREATININE 0.7 mg/dL (0.7-1.3); GFR > 60 ML/MIN (>=60 (CALC)); GFR FOR AFR.AMER. > 60 ML/MIN (>=60 (CALC)); MAGNESIUM 1.7 mg/dL (1.6-2.3); POTASSIUM 3.5 mmol/l (3.5-5.1); SODIUM 139 mmol/l (137-146)
[2018-12-31 11:29] VITALS: BP 117/56
--- NOTE | 2018-12-31 12:45 | NUR ---
PT IS VISITING WITH FAMILY NO DISTRESS NOTED. IV SITE IS FREE FROM REDNESS OR EDEMA.
--- NOTE | 2018-12-31 16:30 | NUR ---
PT IS RELAXING IN BED WITH NO DISTRESS NOTED. IV SITE IS FREE FROM REDNESS OR EDEMA.
[2018-12-31 17:12] VITALS: BP 132/66
--- NOTE | 2018-12-31 18:06 | NUR ---
PT WS REPOSITIONED.DRESING CHANGERD ON HIS COCCYX, DUE TO BEING WET, SERO DRAINAGE NOTED. COVERED WITH AQUA ANY. AND WET TO DRY. FAMILY IN THE ROOM ASSISTED WITH REPOSITIONING AND CHANGES.
--- NOTE | 2018-12-31 20:23 | NUR ---
Patient resting in bed. No complaints of pain. V/S wnl. Patient turned q2h due to extensive sacral wounds. Pictures on chart and documented. LLQ colostomy stoma intact and no S&S of distress. Chavez to BSB draining clear simi urine. Left hand is flaccid and patient is weak in right hand. Will continue to monitor patient progress.
[2018-12-31 20:42] VITALS: BP 133/71
[2019-01-01 00:45] VITALS: BP 133/60
--- NOTE | 2019-01-01 01:58 | NUR ---
Patient resting in bed. No S&S of distress. Patient repositioned for comfort and to relieve pressure points. No change in previous assessment. Will continue to monitor patient.
[2019-01-01 04:48] VITALS: BP 116/57
[2019-01-01 05:23] LABS: URINE BILIRUBIN - DIPSTICK NEGATIVE (NEGATIVE); URINE BLOOD DIPSTICK LARGE (NEGATIVE); URINE COLOR YELLOW; URINE GLUCOSE - DIPSTICK NEGATIVE (NEGATIVE); URINE KETONE NEGATIVE (NEGATIVE); URINE NITRITE - DIPSTICK NEGATIVE (Negative); URINE PROTEIN - DIPSTICK NEGATIVE (NEG-TRACE); URINE UROBILINOGEN - DIPSTICK 0.2 E.U./dL (0.2)
[2019-01-01 05:32] LABS: URINE LEUK ESTERASE MODERATE (NEGATIVE)
[2019-01-01 05:34] LABS: URINE BACTERIA FEW hpf; URINE MUCUS FEW hpf (NONE-FEW); URINE SQUAMOUS EPITHELIAL CELL MODERATE EPI/hpf (0-FEW); URINE WBC 20-50 WBC/hpf (0-5)
--- NOTE | 2019-01-01 06:42 | NUR ---
Patient resting in bed. no complaints. Patient repositioned for comfort. No S&S of distress. Will continue to monitor patient progress.
[2019-01-01 08:30] VITALS: BP 154/53
--- NOTE | 2019-01-01 08:30 | NUR ---
ASSESSMENT IS COMPLETED: IV SITE IS FREE FROM REDNESS OR EDEMA.HR IS REG,PULSES ARE STRONG X4, ABD IS SOFT WITH ACTIVE BS. BREATH SOUNDS ARE CLEAR,BILATERALLY. LOYOLA DRAINING YELLOW URINE COLOSTOMY BAG IS DRAINING BROWN. TELE MONITOR IN PLACE. CONTINUE TO OBSERVE AND MONITOR.
[2019-01-01 10:57] LABS: HEMATOCRIT 35.5 % (39.0-50.0); HEMOGLOBIN 10.7 g/dl (14.0-18.0); IMMATURE GRANULOCYTES 0.5 % (0.0-5.0); MEAN CELL VOLUME 83.5 fL CALC (80.0-100.0); MEAN CORPUSCULAR HGB 25.2 pG CALC (26.0-32.0); MEAN CORPUSCULAR HGB CONC 30.1 g/L CALC (32.0-36.0); NEUT# 6.83 thou/uL (1.82-7.42); RED BLOOD COUNT 4.25 mill/uL (4.70-6.10); RED CELL DISTRI WIDTH 15.5 % (11.5-15.5)
[2019-01-01 11:29] VITALS: BP 119/60
--- NOTE | 2019-01-01 12:45 | NUR ---
PT IS RELAXING IN BED WITH NO DISTRESS NOTED. IV SITE IS FREE FROM REDNESS OR EDEMA. LOYOLA DRAINING COLOSTOMY BAG HAS AIR AND STOOL IN IT.
--- NOTE | 2019-01-01 16:19 | NUR ---
FAMILY BROUGHT IN HIS OSTOMY SUPPLIES. MATCHED WITH HOSPITAL SUPPLIES. HAS SOME STOOL.
--- NOTE | 2019-01-01 16:30 | NUR ---
PT HAS FAMILY IN THE ROOM. CHANGED THE COLOSTOMY BAG WITH OWN SUPPLIES. TOLERATED WELL. IV SITE IS FREE FROM REDNESS OR EDEMA.
[2019-01-01 16:44] VITALS: BP 129/70
[2019-01-01 19:36] VITALS: BP 147/82
--- NOTE | 2019-01-01 20:21 | NUR ---
Patient resting in bed. No S&S of distress. V/S wnl. Breath sounds clear. Patient abdomen soft LLQ colostomy intact, stoma beefy with liquid stool noted. Chavez to BSB. Patient has multiple sacral wounds. Wounds are dry and intact changed on previous shift. Will continue to monitor patient progress.
[2019-01-02 00:06] VITALS: BP 123/68
--- NOTE | 2019-01-02 00:12 | NUR ---
Patient resting in bed. No complaints of pain. V/S wnl. No change in previous assessment. Will continue to monitor patient progress.
[2019-01-02 04:25] VITALS: BP 121/69
--- NOTE | 2019-01-02 05:44 | NUR ---
Patient resting in bed. no complaints of pain. No S&S of distress. Will continue to monitor patient.
--- NOTE | 2019-01-02 07:45 | NUR ---
ASSESSMENT IS COMPLETED: IV SITE IS FREE FROM REDNESS OR EDEMA. HR IS REG,PULSES ARE STRONG X4,ABD IS SOFT WITH ACTIVE BS. BREATH SOUNDS ARE CLEAR BILATERALLY, TELE MONITOR INPLACE, LOYOLA DRAINING YELLOW URINE.,
[2019-01-02 11:42] VITALS: BP 133/68
--- NOTE | 2019-01-02 12:45 | NUR ---
PT IS RELAXING IN BED WITH NO DISTRESS NOTED. IV SITE IS FREE FROM REDNESS OR EDEMA. FAMILY IN THE ROOM.
--- NOTE | 2019-01-02 15:02 | NUR ---
FROM WOUND CARE IN TO VISIT WITH PT.
--- NOTE | 2019-01-02 16:45 | NUR ---
PT HAD A DRESSING CHANGE WITH DR. Perez WOUND CARE. WAS REINFORCED WITH ABD PADS DUE TO LEAKING PACKING INTACT. COLOSTOMY BAG CHANGED LARGE AMOUNTS OF STOOL. SWAB SENT FOR ESBL SURVEY. CONTINUE TO OSEBRVE AND MONITOR.
[2019-01-02 18:38] VITALS: BP 130/72
[2019-01-02 19:00] VITALS: BP 148/62
--- NOTE | 2019-01-02 19:56 | NUR ---
PT. SITTING UP IN BED WITH NO DISTRESS NOTED; DENIES NEEDS/PAIN; PT. REQUESTS NOT TO BE TURNED AT THIS TIME HE IS COMFORTABLE; PT. ALSO REFUSES TO ALLOW STAFF TO FEEL FOR PEDAL PULSES AT THIS TIME PER PT. HE REPORTS HE WILL START SHAKING; IV SITES PATENT X2. ENCOURAGED TO CALL FOR ANY NEEDS; CALL LIGHT IS IN REACH; WILL CONTINUE TO MONITOR.
--- NOTE | 2019-01-02 22:50 | NUR ---
DRESSING CHANGED PERFORMED TO COCCYX AND RIGHT LOWER BACK PER ORDER; REPOSITIONED AT THIS TIME;
[2019-01-03] VITALS: BP 142/69
--- NOTE | 2019-01-03 00:45 | NUR ---
PT. RESTING IN BED WITH NO DISTRESS NOTED; RESP. EVEN AND UNLABORED; CALL LIGHT IS IN REACH.
--- NOTE | 2019-01-03 04:18 | NUR ---
PT. PULLED UP IN BED BY X4 STAFF ASSIST AN REPOSITIONED; PT. IS TELLING STAFF TO CONTINUE TO PULL ON HIM EVEN THOUGH HIS HEAD IS ALMOST HITTING THE BAR AT THE HEAD OF THE BED; ABD PADS TO COCCYX AND FOAM DRESSING REPLACED THEY HAD DRAINAGE NOTED. PT. IS EDUCATED THAT HE IS INFACT ALREADY AT THE TOP OF THE BED; PT. IS UNWILLING TO EVEN CONSTRUCTION MANAGEMENT ASSISTANT HIS WATER TO DRINK EVEN THOUGH HE HAS MOVEMENT TO UE. PT. IS ENCOURAGED TO USE EXTREMETIES IF HE IS ABLE. PT. IS DEMANDING TO STAFF AND GIVING NUMEROUS COMMANDS WHILE IN THE ROOM WITH PT. PT. NOW C/O PAIN AND STATES,"YEAH, I AM WAY PASSED DUE FOR MY PAIN PILL." PT. IS RE-EDUCATED THAT PAIN MEDICATION IS PRN AND IS NOT SCHEDULEDED AND OF LAST PAIN MEDICATION GIVEN.MEDICATED AT THIS TIME WITH PRN LORTAB; ALSO NOTIFIED HIM THAT UPON ROUNDS HE WAS IN FACT RESTING WITH EYES CLOSED. CALL LIGHT IS IN REACH; WATER PROVIDED;WILL CONTINUE TO MONITOR.
[2019-01-03 04:59] VITALS: BP 147/66
[2019-01-03 05:04] LABS: HEMATOCRIT 38.9 % (39.0-50.0); HEMOGLOBIN 11.7 g/dl (14.0-18.0); IMMATURE GRANULOCYTES 0.5 % (0.0-5.0); MEAN CELL VOLUME 83.1 fL CALC (80.0-100.0); MEAN CORPUSCULAR HGB CONC 30.1 g/L CALC (32.0-36.0); NEUT# 7.72 thou/uL (1.82-7.42); RED BLOOD COUNT 4.68 mill/uL (4.70-6.10); RED CELL DISTRI WIDTH 15.5 % (11.5-15.5)
--- NOTE | 2019-01-03 05:14 | NUR ---
SCHED ABT ANGELA; PT. IS ASSISTED TO READJUST IN BED; CATHETER PATENT AND DRAINING AT GRAVITY LEVEL; DENIES FURTHER NEEDS; CALL LIGHT IS IN REACH.
[2019-01-03 05:19] LABS: ALBUMIN 2.9 g/dL (3.2-5.0); ALKALINE PHOSPHATASE 61 u/l (38-126); ANION GAP 12 (6-22 (CALC)); BILIRUBIN, TOTAL 0.3 mg/dL (0.0-1.4); BUN 7 mg/dL (9-20); BUN/CREATININE RATIO 11 (12-20 (CALC)); CARBON DIOXIDE 28 mmol/l (22-30); CHLORIDE 103 mmol/l (95-108); CREATININE 0.7 mg/dL (0.7-1.3); GFR > 60 ML/MIN (>=60 (CALC)); GFR FOR AFR.AMER. > 60 ML/MIN (>=60 (CALC)); LIPASE 20 u/l (23-300); MAGNESIUM 1.8 mg/dL (1.6-2.3); POTASSIUM 3.7 mmol/l (3.5-5.1); SGOT/AST 13 u/l (17-59); SODIUM 139 mmol/l (137-146)
[2019-01-03 05:26] LABS: AMYLASE < 30 u/l (30-110)
--- NOTE | 2019-01-03 07:10 | NUR ---
PT REPORT RECIEVED FROM MIRTHA FELICIANO. PT RESTING. NO S/S OF DISTRESS. CALL LIGHT IN REACH. WILL CONTINUE TO MONITOR.
[2019-01-03 08:43] VITALS: BP 123/58
--- NOTE | 2019-01-03 08:43 | NUR ---
PT A/O X3. SPEECH IS CLEAR. RESP EVEN AND UNLABORED. LUNG SOUNDS CLEAR. TELE IN PLACE. BOWEL SOUNDS ACTIVE. #20 LAC NS @125 AND #22 RH SL. BOTH SITES APPEAR HEALTHY. STRONG RADIAL AND PEDAL PULSES. LOYOLA INTACT; DRAINING CLEAR YELLOW URINE. COLOSTOMY TO LLQ INTACT. PT C/O LOWER BACK PAIN. 10 OUT OF 10 ON PAIN SCALE. MEDICATED W/ LORTAB 10 PO. REPOSITIONED FOR COMFORT. PT HAS DRESSING TO COCCYX AND LT LOWER BACK. BOTH CDI. TRACE OF EDEMA TO BLE. ELEVATED NEEDED. PT DENIES ANY FURTHER NEEDS. POC DISCUSSED. SAFETY PRECAUTIONS IN PLACE. CALL LIGHT IN REACH. AIR MATTRESS IN PLACE. CONTACT PRECAUTIONS. WILL CONTINUE TO MONITOR.
--- NOTE | 2019-01-03 09:30 | NUR ---
DR. SARMIENTO IN TO SEE PT. CLEANED W/ KERLIX REINSERTED BY DR. SARMIENTO. AQAUCEL FOMA PAD APPLIED BY DIRECTOR BUSINESS SYSTEMS TO COCCYX. DRESSING TO LT LOWER BACK REMOVED, CLEANED WOUND W/ SALINE. AQUACEL FOAM PAD APPLIED. PT TOLERATED WELL. WILL CONTINUE TO MONITOR.
--- NOTE | 2019-01-03 09:36 | NUR ---
ATTEMPTED TO TRANSPORT PT TO CT W/ ASSISTANCE OF 4 OTHER STAFF. BED MADE IT THROUGH THE ELEVATOR BUT UNABLE TO GET BED THROUGH CT DOOR. PT BROUGHT BACK TO MS. WILL NOTIFY WOUND CARE DOCTOR AT THIS TIME.
--- NOTE | 2019-01-03 10:12 | NUR ---
DR. QUINTERO CALLED REGARDING CT NOT BEING DONE. STATES TO HOLD OFF ON CT AND SHE IS GOING TO TALK W/ A REP REGARDING A SPECIFIC WOUND VAC, AND SHE WILL CALL BACK. WILL CONTINUE TO MONITOR.
--- NOTE | 2019-01-03 10:18 | NUR ---
ORDERED A WOUND VAC AND VERBALLY STATED TO JOLLY MACHADO THAT SHE WOULD ORDER IT PERSONALLY. WANTS A CERTAIN WOUND VAC APPLIED SO THAT IS WHY SHE DECIDED TO ORDER IT HERSELF @10:00 AM. I SPOKE WITH JOLYL LUIS FROM THE [facility] AND HE VERIFIED THAT THEY ORDERED THE WOUND VAC AND THAT WE WOULD BE RESPONSIBLE FOR GETTING IT PICKED UP UPON D/C OF PT. I SPOKE WITH HIM @10:22 AM. EXT: [phone]
--- NOTE | 2019-01-03 10:47 | NUR ---
DR. QUINTERO IN TO SEE PT
[2019-01-03 11:43] VITALS: BP 112/50
--- NOTE | 2019-01-03 12:15 | NUR ---
PT EATING LUNCH W/ ASSISTANCE FROM [facility]. PT DENIES ANY PAIN OR NEEDS. CALL LIGHT IN REACH. WILL CONTINUE TO MONITOR.
[2019-01-03 15:38] VITALS: BP 132/63
--- NOTE | 2019-01-03 15:43 | NUR ---
PT RESTING IN BED. NO CO PAIN OR NEEDS. CALL LIGHT IN REACH. WILL CONTINUE TO MONITOR.
--- NOTE | 2019-01-03 19:00 | NUR ---
BEDSIDE REPORT RECEIVED FROM JOLLY MARIA. PT SITTING UP IN BED HIGH FOWLERS; ALERT AND ORIENTED. C/O INCREASING LOWER BACK PAIN AND "NERVE PAIN." RESPIRATIONS EVEN AND UNLABORED ON ROOM AIR. PLAN OF CARE REVIEWED. PT ENCOURAGED TO VERBALIZE CONCERNS. STATES UNDERSTANDING. SAFETY MEASURES IN PLACE. CALL LIGHT WITHIN REACH.
[2019-01-03 19:32] VITALS: BP 137/71
--- NOTE | 2019-01-03 19:40 | NUR ---
ASSESSMENT COMPLETED. PT STATES THAT HE CANNOT BE TOUCHED AT ALL WITHOUT HAVING PAIN; SOME MOVEMENT TO EXTREMITIES, BUT HE CAN ONLY LIFT CYN. LUNGS CLEAR; GENERALIZED EDEMA; 3+ PEDAL EDEMA; PT DECLINES FEET ELEVATION. ON AIRMATRESS. LOYOLA DRAINING CLEAR YELLOW URINE. COLOSTOMY. TELE ON.
--- NOTE | 2019-01-03 21:21 | NUR ---
PO MEDS ADMINSITERED WHOLE WITH WATER; PT NEEDS ASSISTANCE HOLDING BOTTLE. PT NOW REPORTS 10/10 LOWER BACK AND BUTTOCK PAIN AND REQUESTS REPOSITIONING. LORTAB GIVEN WITH HS MED[facility]. WILL RESPOSITION WITH PILLOWS.
--- NOTE | 2019-01-03 23:50 | NUR ---
PT REPOSITIONED AND DRESSING TO COCCYX CHANGED PER ORDERS.
[2019-01-04 00:06] VITALS: BP 134/78
--- NOTE | 2019-01-04 04:13 | NUR ---
LORTAB GIVEN FOR 10/10 LOWER BACK PAIN THAT WOKE PT UP. FLUID BAG REPLACED INCLUDING IV LINES. PT DECLINED NEW IV; DRESSING CHANGED TO CURRENT IV SITE TO LAC; SITE APPEARS HEALTHY; IV FLUIDS INFUSING WITHOUT DIFFICULTY. REPOSITIONED AT THIS TIME.
[2019-01-04 04:28] VITALS: BP 129/64
--- NOTE | 2019-01-04 07:05 | NUR ---
REPORT RECEIVED FROM MIRTHA STANTON; PT SITTING UP IN BED, APPEARS TO BE SLEEPING; RESP EVEN AND UNLABORED; CALL CORTEZ IN REACH.
--- NOTE | 2019-01-04 08:40 | NUR ---
ASSESSMENT COMPLETED; A/O; PT REPOSITION, BACK RUB GIVEN; MEDICATED PER EMAR; TELE IN PLACE; #20G LAC, NS INFUSING @125CC/HR; PT REFUSING TO CHANGE OUT IV SITE, SAYS "THIS ONE WORKS FINE" TELE IN PLACE; COLOSTOMY TO LLQ INTACT; LOYOLA DRAINING TO GRAVITY CLEAR, YELLOW URINE; GENERALIZED EDEMA NOTED; BILAT ARMS ELEVATED ON PILLOWS; CALL CORTEZ IN REACH; SAFETY PRECAUTION REINFORCE; WILL CONTINUE TO MONITOR.
[2019-01-04 08:41] VITALS: BP 143/75
--- NOTE | 2019-01-04 10:40 | NUR ---
PT REPOSITION ON RT SIDE
[2019-01-04 10:57] VITALS: BP 141/60
--- NOTE | 2019-01-04 12:03 | NUR ---
PHYSICAL ANTHROPOLOGIST AT BEDSIDE FEEDING PT HIS LUNCH; HOB ELEVATED; LOYOLA PATENT, DRAINING TO GRAVITY; VOICE NO CONCERNS; CALL CORTEZ IN REACH.
--- NOTE | 2019-01-04 14:00 | NUR ---
PT REPOSITION, DRESSING CHANGE DONE BY DR GOMEZ; PICTURES TAKEN; WOUND VAC NOT APPLIED, NO CANISTER; MEDICATED PER EMAR; CALL CORTEZ IN REACH.
--- NOTE | 2019-01-04 15:35 | NUR ---
PT ASSISTED TO STRETCHER WITH MULTIPLE HELP, DOWN FOR CT WITH STAFF MEMBERS IN STABLE CONDITION.
--- NOTE | 2019-01-04 15:50 | NUR ---
PT RETURN TO FLOOR VIA STRETCHER ACCOMPANIED BY PATIENT SUPPORT REPRESENTATIVE, ASSISTED BACK TO BED IN STABLE CONDITION; NIR PATENT; CALL CORTEZ IN REACH;
[2019-01-04 16:00] VITALS: BP 118/56
--- NOTE | 2019-01-04 19:20 | NUR ---
REPORT RECIEVED FROM JOLLY MENDOZA. PT RESTING IN BED ALERT AND ORIENTED. PT DENIES ANY NEEDS AT THIS TIME. SAFETY PRECAUTIONS IN PLACE, WILL CONTINUE TO MONITOR.
--- NOTE | 2019-01-04 19:25 | NUR ---
pt sitting up in bed watching tv; resp even and unlabored; mod bm emptied from colostomy; ivf infusing without difficulty; voice no concerns; call hoffman in reach.
[2019-01-04 19:53] VITALS: BP 119/66
[2019-01-05] VITALS: BP 159/81
--- NOTE | 2019-01-05 | NUR ---
PT RESTING IN BED ALERT AND ORIENTED. REPOSITIONED PT EXTREMITIES. LOYOLA DRAINING TO GRAVITY. TELE IN PLACE. SAFETY PRECAUTIONS IN PLACE WILL CONTINUE TO MONITOR.
--- NOTE | 2019-01-05 02:56 | NUR ---
PT RESTING IN BED. ALERT AND ORIENTED. DRESSING TO COCCYX CHANGED PER ORDERS. PT REPOSITIONED. CALL CORTEZ WITHIN REACH. WILL CONTINUE TO MONITOR.
--- NOTE | 2019-01-05 04:53 | NUR ---
PT RESTING IN BED WITH EYES CLOSED. RESPIRATIONS EVEN AND UNLABORED ON RA. SAFETY PRECAUTIONS IN PLACE. WILL CONTINUE TO MONITOR.
[2019-01-05 05:01] VITALS: BP 125/72
[2019-01-05 08:51] VITALS: BP 135/74
--- NOTE | 2019-01-05 09:01 | NUR ---
ASSESSMENT COMPLETED; PT SITTING UP IN BED WITH HOB ELEVATED; IN AND OUT OF SLEEP; RESP EVEN AND UNLABORED; #20G LAC, IVF NS INFUSING @125CC/HR; SITE APPEARS HEALTHY; TELE IN PLACE; COLOSTOMY RLQ, INTACT; LOYOLA DRAINING TO GRAVITY, CLEAR, PK URINE; EMPTIED 900CC; ON AIR MATTRESS; CALL CORTEZ IN REACH; SAFETY PRECAUTION REINFORCE;
[2019-01-05 11:34] VITALS: BP 138/66
--- NOTE | 2019-01-05 13:39 | NUR ---
SPOKE WITH DAUGHTER THE WOUND VAC WILL BE DELIVERED TOMORROW.
--- NOTE | 2019-01-05 13:43 | NUR ---
PT REPOSITION IN BED, COMPLETE BED BATH GIVEN, LINEN CHANGE DONE; DRESSING TO COCCYX DONE PER ORDERS; TOLERATED WELL; FAMILIES NOW ARRIVED AND AT BEDSIDE. CALL CORTEZ IN REACH.
[2019-01-05 14:55] VITALS: BP 116/53
--- NOTE | 2019-01-05 16:00 | NUR ---
PT IS RELAXING IN BED WITH NO DISTRESS NOTED. IV SITE IS FREE FROM REDNESS OR EDEMA.
--- NOTE | 2019-01-05 16:58 | NUR ---
IV SITE DISCONTIUED, CATHETER INTACT. NO REDNESS OR EDEMA. TELE MONITOR TAKEN OFF. ACCU CHEDK [id number]
--- NOTE | 2019-01-05 18:23 | NUR ---
[facility] IN TO TRANSPORT PT HOME.
--- NOTE | 2019-01-05 18:31 | NUR ---
WILL HAVE DISCHARGE INSTRUCTIONS FOR PT TO PRACTICE BILLING ASSOCIATE.
--- NOTE | 2019-01-05 18:32 | NUR ---
I SPOKE WITH FRANCE FROM [facility] @[id number]. HE VERIFIED THAT THE MATRESS WOULD BE PICKED UP IN THE NEXT 24-48 HOURS AND THE CONFIRMATION # IS [id number].
== END 2019-01-05 18:15 | disposition home health service (06) | DRG 571 ==
LOC: ED 14:42 → ED-I 15:16 → ED 15:16 → ED-I 17:23 → ED 17:48 → MS2 17:49
PROVIDERS: Emergency Medicine; Internal Medicine Nephrology; Nurse Practitioner Family; ADMIT Internal Medicine; ATTEND Internal Medicine
PROC: 0JB70ZZ Excision of Back Subcutaneous Tissue and Fascia, Open Approach (ICD-10-PCS; 2019-01-03)
PROC: 0JB70ZZ Excision of Back Subcutaneous Tissue and Fascia, Open Approach (ICD-10-PCS; principal; 2019-01-04)
PROC: 0W3L0ZZ Control Bleeding in Lower Back, Open Approach (ICD-10-PCS; 2019-01-04)
DX: L89.154 Pressure ulcer of sacral region, stage 4 (principal); Z68.41 Body mass index [BMI] 40.0-44.9, adult; L08.9 Local infection of the skin and subcutaneous tissue, unspecified; E66.01 Morbid (severe) obesity due to excess calories; I10 Essential (primary) hypertension; E11.40 Type 2 diabetes mellitus with diabetic neuropathy, unspecified; G35 Multiple sclerosis; I48.0 Paroxysmal atrial fibrillation; G47.33 Obstructive sleep apnea (adult) (pediatric); M48.00 Spinal stenosis, site unspecified; G89.4 Chronic pain syndrome; D63.8 Anemia in other chronic diseases classified elsewhere; F17.220 Nicotine dependence, chewing tobacco, uncomplicated; Z93.3 Colostomy status; Z79.84 Long term (current) use of oral hypoglycemic drugs; Z91.11 Patient's noncompliance with dietary regimen; Z79.01 Long term (current) use of anticoagulants; Z74.01 Bed confinement status
CPT/HCPCS: J0692; J3370

== ENCOUNTER 2019-03-06 17:32 | Emergency (ER) | payer MEDICARE, OTHER ==
[~2019-03-06] VITALS: Ht 193 cm; Wt 160.0 kg
[2019-03-06 18:29] LABS: HEMATOCRIT 34.5 % (39.0-50.0); HEMOGLOBIN 10.4 g/dl (14.0-18.0); IMMATURE GRANULOCYTES 3.1 % (0.0-5.0); MEAN CORPUSCULAR HGB 23.3 pG CALC (26.0-32.0); MEAN CORPUSCULAR HGB CONC 30.1 g/L CALC (32.0-36.0); RED BLOOD COUNT 4.47 mill/uL (4.70-6.10); RED CELL DISTRI WIDTH 16.2 % (11.5-15.5)
[2019-03-06 18:37] LABS: MEAN CELL VOLUME 77.2 fL CALC (80.0-100.0); PLATELET COUNT 503 thou/uL (130-400)
[2019-03-06 18:47] LABS: ALBUMIN 2.4 g/dL (3.2-5.0); ALKALINE PHOSPHATASE 77 u/l (38-126); BUN 18 mg/dL (9-20); BUN/CREATININE RATIO 25 (12-20 (CALC)); CARBON DIOXIDE 23 mmol/l (22-30); CREATININE 0.7 mg/dL (0.7-1.3); GFR > 60 ML/MIN (>=60 (CALC)); GFR FOR AFR.AMER. > 60 ML/MIN (>=60 (CALC)); POTASSIUM 4.1 mmol/l (3.5-5.1); TOTAL PROTEIN 5.6 g/dL (6.3-8.2)
[2019-03-06 18:49] LABS: BAND 8 % (0-8)
[2019-03-06 18:50] LABS: MANUAL DIFFERENTIAL YES
[2019-03-06 18:53] LABS: ANION GAP 19 (6-22 (CALC)); BILIRUBIN, TOTAL 0.6 mg/dL (0.0-1.4); CHLORIDE 88 mmol/l (95-108); SGOT/AST 34 u/l (17-59); SODIUM 126 mmol/l (137-146)
[2019-03-06 18:59] LABS: MYOGLOBIN 36 ng/mL (0 - 121)
[2019-03-06 20:00] VITALS: BP 98/56
== END 2019-03-06 20:34 | disposition short-term general hospital (02) ==
LOC: ED 17:32
PROVIDERS: Emergency Medicine
DX: A41.9 Sepsis, unspecified organism (principal); L89.324 Pressure ulcer of left buttock, stage 4; L89.152 Pressure ulcer of sacral region, stage 2; L89.309 Pressure ulcer of unspecified buttock, unspecified stage; I48.92 Unspecified atrial flutter; I10 Essential (primary) hypertension; E11.9 Type 2 diabetes mellitus without complications; E66.9 Obesity, unspecified; F17.200 Nicotine dependence, unspecified, uncomplicated; Z93.3 Colostomy status